=== PATIENT | male | born 1940 | race Caucasian/White ===

== ENCOUNTER → 2016-07-22 | Outpatient (REF) | payer MEDICARE ==
[~2016-07-22] MED LIST: /GLIP10TAB PO; /METO25TAB PO; /NITR4TASL SL; ALTA1.25 PO; ASPI81TA85 PO; CIPR500T89 PO; CLOP75TA2 PO; CORE3.12 PO; FERR325T69 PO; FLAG500T PO; FLOV110A IN; JANU100T PO; LASI20TA PO; METF1000 PO; OMEP40CA2 PO; PERC7.5T12 PO; TYLE325T5 PO; fluticasone; protonix PO
== END ==
LOC: M LAB REF 12:52
PROVIDERS: ATTEND Internal Medicine Medical Oncology
DX: C18.9 Malignant neoplasm of colon, unspecified (principal)

== ENCOUNTER → 2016-08-06 | Outpatient (CLI) | payer MEDICARE ==
[~2016-08-06] MED LIST changes: +GASTROGRAFIN SOLUTION 30ML (Q9963) As Ordered ONE
--- NOTE | 2016-08-07 10:28 | REP ---
CT CHEST WITH IV CONTRAST: TECHNIQUE: Axial contrast enhanced images from the thoracic inlet to the upper abdomen using 100 mL Isovue 370 intravenous contrast material with multiplanar reformations. COMPARISON: 07/29/2015. Large calcified granuloma is seen in the lingula. Tiny calcified granuloma is seen in the right lower lobe. No suspicious pulmonary nodules are seen. There is mild bibasilar interstitial fibrosis. Calcified lymph nodes are seen in the left hilar region. No suspicious adenopathy is seen in the mediastinum, tavo or axillary region. There is no pleural or pericardial effusion. The heart is slightly enlarged. There are degenerative changes of the spine. IMPRESSION: Evidence of prior granulomatous disease. No suspicious findings. Mild cardiomegaly. Signed by Ankur Vela MD 08/08/2016 05:11 P
--- NOTE | 2016-08-07 10:45 | REP ---
CT ABDOMEN AND PELVIS WITH AND WITHOUT CONTRAST: TECHNIQUE: Axial noncontrast images through the abdomen followed by contrast-enhanced images through the abdomen and pelvis using 100 mL Isovue 370 intravenous contrast material, with coronal and sagittal reformations. Comparison 11/28/2015. The liver demonstrates no mass. Patient has had a prior cholecystectomy. There is no biliary dilatation. Tiny calcified granulomas are seen in the spleen without other intrinsic abnormality. The adrenals and pancreas demonstrate no abnormality. Right kidney appears normal. There is a cyst in the mid left kidney anteriorly measuring 2 cm in diameter. There is no hydronephrosis or nephrolithiasis bilaterally. Distal abdominal aorta is mildly ectatic with moderate atherosclerotic calcifications. There is no aneurysm. There is no adenopathy. There is no free air or free fluid. There is no bowel wall thickening. There is sigmoid diverticulosis. Urinary bladder is not well distended and not well evaluated. IMPRESSION: No new mass or adenopathy. Stable chronic findings as above. Signed by Ankur Vela MD 08/08/2016 05:11 P
== END ==
LOC: M RAD 14:57
PROVIDERS: ATTEND Internal Medicine Medical Oncology
DX: C61 Malignant neoplasm of prostate (principal); I51.7 Cardiomegaly
CPT/HCPCS: 71260; 74178; Q9963

== ENCOUNTER → 2016-08-19 | Outpatient (REF) | payer MEDICARE ==
[~2016-08-19] MED LIST changes: -GASTROGRAFIN SOLUTION 30ML (Q9963) As Ordered ONE
== END ==
LOC: M LAB REF 12:59
PROVIDERS: ATTEND Internal Medicine Medical Oncology
DX: C18.9 Malignant neoplasm of colon, unspecified (principal)

== ENCOUNTER → 2016-09-02 | Outpatient (REF) | payer MEDICARE | LOC: M LAB REF 12:25 | PROVIDERS: ATTEND Internal Medicine Medical Oncology | DX: C18.9 Malignant neoplasm of colon, unspecified (principal) ==

== ENCOUNTER → 2016-11-10 | Outpatient (REF) | payer MEDICARE ==
[~2016-11-10] MED LIST changes: +CIPR-249 PO; -CIPR500T89 PO
== END ==
LOC: M LAB REF 16:46
PROVIDERS: ATTEND Internal Medicine Medical Oncology
DX: C18.9 Malignant neoplasm of colon, unspecified (principal)

== ENCOUNTER → 2016-12-22 | Outpatient (REF) | payer MEDICARE | LOC: M LAB REF 12:28 | PROVIDERS: ATTEND Internal Medicine Medical Oncology | DX: C18.9 Malignant neoplasm of colon, unspecified (principal) ==

== ENCOUNTER → 2017-01-08 | Outpatient (REF) | payer MEDICARE | LOC: M LAB REF 10:30 | PROVIDERS: ATTEND Physician Assistant | DX: N39.0 Urinary tract infection, site not specified (principal) ==

== ENCOUNTER → 2017-01-13 | Outpatient (CLI) | payer MEDICARE ==
--- NOTE | 2017-01-13 16:33 | REP ---
PET/CT: History: Restaging colon carcinoma. Elevated CEA level. Comparisons: Comparison CT study of the chest is from 08/06/2016. Comparison CT abdomen and pelvis is from 08/06/2016. Comparison is made with prior PET-CT study from 12/22/2013. TECHNIQUE: 54 minutes following the intravenous injection of a 8.6 mCi dose of F-18 FDG, three-dimensional PET scintigraphy is acquired from the skull base to the proximal thighs. Triplanar noncontrast CT scanning is acquired through the same anatomic range for attenuation correction, and image registration with scan parameters optimized to minimize radiation exposure to the patient. PET scintigraphy and CT datasets were fused and displayed on a workstation with multiplanar and projection display capability. PET/CT Findings: There is no abnormal hypermetabolic uptake within the liver. No abnormal upper abdominal or retroperitoneal adenopathy or hypermetabolic dayana uptake is seen. Normal gastrointestinal, genitourinary, hepatic and splenic uptake is seen in the abdomen. No abnormal adrenal uptake is seen. In the thorax, there is no abnormal hypermetabolic uptake. There is a right-sided Pqxenq-N-Lsgn and a left-sided right heart pacemaker. Head and neck soft tissues are unremarkable. Impression: No abnormal hypermetabolic uptake seen. Negative PET scintigraphy. Signed by Mika Crooks MD 01/13/2017 05:31 P
== END ==
LOC: M PLARAD 10:37
PROVIDERS: ATTEND Internal Medicine Medical Oncology
DX: C18.9 Malignant neoplasm of colon, unspecified (principal)
CPT/HCPCS: 78815; A9552

== ENCOUNTER → 2017-07-21 | Outpatient (REF) | payer MEDICARE ==
[2017-07-21 14:02] LABS: CARCINOEMBRYONIC ANTIGEN 4.4 NG/ML (<2.5)
== END ==
LOC: M LAB REF 13:10
DX: C18.9 Malignant neoplasm of colon, unspecified (principal)
CPT/HCPCS: 82378

== ENCOUNTER 2017-08-18 18:04 | Inpatient (IN) | payer MEDICARE ==
[2017-08-18] MEDS: NS 500 ML IV (19:15)
[2017-08-18 19:41] LABS: BASO % 0.3 % (0.0-1.0); EOS # 0.1 10^3/uL (0.0-0.50); EOS % 0.7 % (0.0-3.0); HEMATOCRIT 41.1 % (42.0-52.0); HEMOGLOBIN 14.1 g/dl (13.5-17.5); IMMATURE GRANULOCYTE % 0.5 % (0-3.0); LYMPH # 1.2 10^3/uL (1.5-4.5); MEAN CORPUSCULAR HEMOGLOBIN 30.5 pg (27.0-33.0); MEAN CORPUSCULAR HGB CONC 34.3 g/dl (32.0-36.5); MONO % 8.4 % (0.0-5.0); NEUTROPHILS # 9.3 10^3/uL (1.8-7.7); NEUTROPHILS % 80.1 % (36.0-66.0); PLATELET COUNT, AUTOMATED 226 10^3/uL (150-450); RED BLOOD COUNT 4.62 10^6/uL (4.30-6.10); RED CELL DISTRIBUTION WIDTH 13.1 % (11.5-14.5); WHITE BLOOD COUNT 11.6 10^3/uL (4.0-10.0)
[2017-08-18] MEDS: MORPHINE 4 MG/ML 1ML VIAL/SYRINGE (J2270) IV (19:41)
[2017-08-18 20:06] LABS: INR 0.97; PARTIAL THROMBOPLASTIN TIME 24.4 SECONDS (26.8-37.9)
[2017-08-18] MEDS: HYDROmorphone HCL 1 MG/ML SYRINGE (J1170) IV (20:56)
[2017-08-18 22:45] LABS: ANION GAP 6 MEQ/L (8-16); BLOOD UREA NITROGEN 29 MG/DL (7-18); CARBON DIOXIDE LEVEL 26 MEQ/L (21-32); CHLORIDE LEVEL 109 MEQ/L (98-107); CK-MB VALUE MASS 3.9 NG/ML (<3.6); CPK CREATINE PHOSPHOKINASE 492 U/L (39-308); CREATININE FOR GFR 1.11 MG/DL (0.70-1.30); GLOMERULAR FILTRATION RATE > 60.0 (>42); GLUCOSE, FASTING 203 MG/DL (70-100); MB/CK RELATIVE INDEX 0.79 (< OR =4); POTASSIUM SERUM 4.2 MEQ/L (3.5-5.1); SODIUM LEVEL 141 MEQ/L (136-145)
[2017-08-18] MEDS ORDERED: ISOVUE-370 76% 100ML VIAL (Q9967) As Ordered (23:00)
[2017-08-18 23:41] LABS: TROPONIN I 0.23 NG/ML (< 0.10)
[2017-08-19] MEDS: HYDROmorphone HCL 1 MG/ML SYRINGE (J1170) IV (00:15)
[2017-08-19 01:55] LABS: ALBUMIN 3.4 GM/DL (3.2-5.2); ALBUMIN/GLOBULIN RATIO 1.21 (1.00-1.93); ALKALINE PHOSPHATASE 48 U/L (45-117); ALT/SGPT 26 U/L (12-78); AST/SGOT 31 U/L (7-37); BILIRUBIN,DIRECT 0.2 MG/DL (0.0-0.2); BILIRUBIN,TOTAL 0.7 MG/DL (0.2-1.0); MAGNESIUM LEVEL 1.5 MG/DL (1.8-2.4); NT-PRO BNP 925 PG/ML (<450); TOTAL PROTEIN 6.2 GM/DL (6.4-8.2)
[2017-08-19] MEDS ORDERED: DEXTROSE 50% 50 ML SYRINGE IV (02:15)
[2017-08-19] MEDS ORDERED: IPRATROPIUM 0.5MG/ALBUTEROL 2.5MG INH SOL UD 3ML (DUONEB)(J7620) NEB (02:15)
[2017-08-19] MEDS ORDERED: GLUCAGON FOR INJ 1 MG VIAL (J1610) SC (02:15)
[2017-08-19] MEDS ORDERED: GLUCOSE 4 GM CHEW TABLET PO (02:15)
[2017-08-19] MEDS: NS 1,000 ML IV (03:37)
[2017-08-19] MEDS: MORPHINE 4 MG/ML 1ML VIAL/SYRINGE (J2270) IV ×3 (03:37→10:58)
[2017-08-19] MEDS: MAG SULF 1GM/100ML (MAG RUN) 1 GM in APPROPRIATE DILUENT 1 EA IV (03:38)
[2017-08-19 04:47] LABS: BASO % 0.2 % (0.0-1.0); EOS % 0.1 % (0.0-3.0); HEMATOCRIT 37.1 % (42.0-52.0); HEMOGLOBIN 12.3 g/dl (13.5-17.5); IMMATURE GRANULOCYTE % 0.3 % (0-3.0); LYMPH # 1.2 10^3/uL (1.5-4.5); LYMPH % 12.4 % (24.0-44.0); MEAN CORPUSCULAR HEMOGLOBIN 29.9 pg (27.0-33.0); MEAN CORPUSCULAR HGB CONC 33.2 g/dl (32.0-36.5); MEAN CORPUSCULAR VOLUME 90.3 fl (80.0-96.0); MONO # 1.3 10^3/uL (0.0-0.8); NEUTROPHILS # 6.9 10^3/uL (1.8-7.7); PLATELET COUNT, AUTOMATED 164 10^3/uL (150-450); RED BLOOD COUNT 4.11 10^6/uL (4.30-6.10); RED CELL DISTRIBUTION WIDTH 12.9 % (11.5-14.5); WHITE BLOOD COUNT 9.4 10^3/uL (4.0-10.0)
[2017-08-19 05:13] LABS: ANION GAP 5 MEQ/L (8-16); BLOOD UREA NITROGEN 26 MG/DL (7-18); CALCIUM LEVEL 7.9 MG/DL (8.8-10.2); CARBON DIOXIDE LEVEL 26 MEQ/L (21-32); CHLORIDE LEVEL 108 MEQ/L (98-107); CK-MB VALUE MASS 4.9 NG/ML (<3.6); CPK CREATINE PHOSPHOKINASE 728 U/L (39-308); CREATININE FOR GFR 1.05 MG/DL (0.70-1.30); GLOMERULAR FILTRATION RATE > 60.0 (>42); GLUCOSE, FASTING 233 MG/DL (70-100); MB/CK RELATIVE INDEX 0.67 (< OR =4); POTASSIUM SERUM 4.3 MEQ/L (3.5-5.1); SODIUM LEVEL 139 MEQ/L (136-145); TROPONIN I 0.24 NG/ML (< 0.10)
[2017-08-19] MEDS: HumaLOG INSULIN (NovoLOG) PER UNIT SC ×4 (05:37→20:41)
[2017-08-19] MEDS: PERCOCET 5MG/325MG TAB PO ×3 (05:38→20:41)
[2017-08-19] MEDS: SYMBICORT 160/4.5MCG INHALER 6GM INH ×2 (07:38→20:00)
[2017-08-19] MEDS: FERROUS SULFATE 325MG TAB PO (08:51)
[2017-08-19] MEDS: CLOPIDOGREL 75 MG TAB PO (08:51)
[2017-08-19] MEDS: OMEPRAZOLE 20 MG CAP PO (08:51)
[2017-08-19] MEDS: SENOKOT S TAB PO ×2 (08:51→20:40)
[2017-08-19] MEDS: CARVedilol 6.25 MG TAB PO ×2 (08:53→20:40)
[2017-08-19] MEDS: FLUTICASONE PROP 0.05% NASAL SPRAY 16 GM (FLONASE) (08:53)
[2017-08-19 10:28] LABS: TROPONIN I 0.21 NG/ML (< 0.10)
[2017-08-19 10:39] LABS: CK-MB VALUE MASS 7.1 NG/ML (<3.6); CPK CREATINE PHOSPHOKINASE 1093 U/L (39-308); MB/CK RELATIVE INDEX 0.64 (< OR =4)
[2017-08-19 12:22] LABS: BEDSIDE GLUCOSE 214 MG/DL (83-110)
[2017-08-19 17:07] LABS: BEDSIDE GLUCOSE 224 MG/DL (83-110)
[2017-08-19 20:35] LABS: BEDSIDE GLUCOSE 232 MG/DL (83-110)
[2017-08-19] MEDS: ASPIRIN 81 MG ENTERIC TAB PO (20:40)
[2017-08-19] MEDS: FENOFIBRATE 145 MG TAB (TRICOR) PO (20:40)
[2017-08-19] MEDS: SIMVASTATIN 20 MG TAB PO (20:41)
[2017-08-20] MEDS: MORPHINE 4 MG/ML 1ML VIAL/SYRINGE (J2270) IV ×2 (04:53→10:11)
[2017-08-20] MEDS: PERCOCET 5MG/325MG TAB PO ×3 (07:05→19:09)
[2017-08-20] MEDS: FLUTICASONE PROP 0.05% NASAL SPRAY 16 GM (FLONASE) (09:00)
[2017-08-20 09:11] LABS: BEDSIDE GLUCOSE 287 MG/DL (83-110)
[2017-08-20] MEDS: HumaLOG INSULIN (NovoLOG) PER UNIT SC ×4 (10:10→21:00)
[2017-08-20] MEDS: OMEPRAZOLE 20 MG CAP PO (10:11)
[2017-08-20] MEDS: SENOKOT S TAB PO ×2 (10:11→21:04)
[2017-08-20] MEDS: CLOPIDOGREL 75 MG TAB PO (10:12)
[2017-08-20] MEDS: FERROUS SULFATE 325MG TAB PO (10:12)
[2017-08-20] MEDS: CARVedilol 6.25 MG TAB PO ×2 (10:15→21:00)
[2017-08-20] MEDS: SYMBICORT 160/4.5MCG INHALER 6GM INH ×2 (11:20→21:31)
[2017-08-20 11:26] LABS: BASO % 0.5 % (0.0-1.0); EOS % 0.3 % (0.0-3.0); HEMOGLOBIN 12.2 g/dl (13.5-17.5); IMMATURE GRANULOCYTE % 0.8 % (0-3.0); LYMPH # 1.4 10^3/uL (1.5-4.5); LYMPH % 15.7 % (24.0-44.0); MEAN CORPUSCULAR HEMOGLOBIN 30.5 pg (27.0-33.0); MEAN CORPUSCULAR HGB CONC 33.9 g/dl (32.0-36.5); MONO # 1.2 10^3/uL (0.0-0.8); MONO % 13.6 % (0.0-5.0); NEUTROPHILS % 69.1 % (36.0-66.0); PLATELET COUNT, AUTOMATED 179 10^3/uL (150-450); RED CELL DISTRIBUTION WIDTH 13.1 % (11.5-14.5); WHITE BLOOD COUNT 8.7 10^3/uL (4.0-10.0)
[2017-08-20 11:43] LABS: ANION GAP 7 MEQ/L (8-16); BLOOD UREA NITROGEN 23 MG/DL (7-18); CALCIUM LEVEL 8.7 MG/DL (8.8-10.2); CARBON DIOXIDE LEVEL 27 MEQ/L (21-32); CHLORIDE LEVEL 100 MEQ/L (98-107); CREATININE FOR GFR 1.16 MG/DL (0.70-1.30); GLOMERULAR FILTRATION RATE > 60.0 (>42); GLUCOSE, FASTING 296 MG/DL (70-100); POTASSIUM SERUM 4.3 MEQ/L (3.5-5.1); SODIUM LEVEL 134 MEQ/L (136-145)
[2017-08-20 11:49] LABS: BEDSIDE GLUCOSE 274 MG/DL (83-110)
[2017-08-20 12:34] LABS: BEDSIDE GLUCOSE 258 MG/DL (83-110)
[2017-08-20] MEDS: ACETAMINOPHEN TAB 650MG DOSE (2X325MG) PO (12:51)
[2017-08-20 16:02] LABS: APPEARANCE, URINE CLEAR (CLEAR); BACTERIA, URINE AUTO NEGATIVE (NEGATIVE); BILIRUBIN, URINE AUTO NEGATIVE (NEGATIVE); BLOOD, URINE BLOOD NEGATIVE (NEGATIVE); COLOR, URINE YELLOW (YELLOW); GLUCOSE, URINE (UA) AUTO 3+ mg/dL (NEGATIVE); KETONE, URINE AUTO NEGATIVE (NEGATIVE); LEUKOCYTE ESTERASE, URINE AUTO NEGATIVE (NEGATIVE); NITRITE, URINE AUTO NEGATIVE (NEGATIVE); PROTEIN, URINE AUTO NEGATIVE (NEGATIVE); RBC, URINE AUTO 4 /HPF (0-3); SPECIFIC GRAVITY URINE AUTO 1.028 (1.002-1.035); SQUAMOUS EPITHELIAL CELL UR AU 0 /HPF (0-6); WBC, URINE AUTO 0 /HPF (0-3)
[2017-08-20 16:23] LABS: ESTIMATED AVERAGE GLUCOSE 148 MG/DL (60-110); HEMOGLOBIN A1c 6.8 %
[2017-08-20 16:25] LABS: AMMONIA 33 uMOL/L (<32)
[2017-08-20 16:38] LABS: ERYTHROCYTE SEDIMENTATION RATE 40 mm/hr (0-20)
[2017-08-20] MEDS: NS 1,000 ML IV (17:54)
[2017-08-20] MEDS: ENOXAPARIN 30 MG/0.3 ML SYR (J1650) SC (18:08)
[2017-08-20] MEDS: LEVEMIR (INSULIN DETEMIR) 1 UNITS/0.01ML SC (21:02)
[2017-08-20] MEDS: FENOFIBRATE 145 MG TAB (TRICOR) PO (21:02)
[2017-08-20] MEDS: ASPIRIN 81 MG ENTERIC TAB PO (21:03)
[2017-08-20] MEDS: VANCOMYCIN HCL 1,000 MG, VIAL MATE ADAPTER 1 EACH in D5W 250 ML IV (22:00)
[2017-08-20] MEDS: PIPERACILLIN/TAZOBACTAM SOD 3.375 GM in D5W MINI-BAG PLUS 50 ML IV (23:00)
[2017-08-21] MEDS: PIPERACILLIN/TAZOBACTAM SOD 3.375 GM in D5W MINI-BAG PLUS 50 ML IV ×4 (04:48→23:09)
[2017-08-21 05:49] LABS: BASO % 0.2 % (0.0-1.0); HEMATOCRIT 31.8 % (42.0-52.0); HEMOGLOBIN 10.7 g/dl (13.5-17.5); IMMATURE GRANULOCYTE % 3.1 % (0-3.0); LYMPH # 1.3 10^3/uL (1.5-4.5); LYMPH % 8.2 % (24.0-44.0); MEAN CORPUSCULAR HGB CONC 33.6 g/dl (32.0-36.5); MEAN CORPUSCULAR VOLUME 89.1 fl (80.0-96.0); MONO # 1.5 10^3/uL (0.0-0.8); MONO % 9.4 % (0.0-5.0); NEUTROPHILS # 12.5 10^3/uL (1.8-7.7); NEUTROPHILS % 79.1 % (36.0-66.0); PLATELET COUNT, AUTOMATED 138 10^3/uL (150-450); RED BLOOD COUNT 3.57 10^6/uL (4.30-6.10); WHITE BLOOD COUNT 15.8 10^3/uL (4.0-10.0)
[2017-08-21 06:13] LABS: ANION GAP 7 MEQ/L (8-16); BLOOD UREA NITROGEN 21 MG/DL (7-18); CARBON DIOXIDE LEVEL 26 MEQ/L (21-32); CHLORIDE LEVEL 101 MEQ/L (98-107); CREATININE FOR GFR 1.01 MG/DL (0.70-1.30); GLOMERULAR FILTRATION RATE > 60.0 (>42); GLUCOSE, FASTING 218 MG/DL (70-100); MAGNESIUM LEVEL 1.9 MG/DL (1.8-2.4); POTASSIUM SERUM 4.2 MEQ/L (3.5-5.1); SODIUM LEVEL 134 MEQ/L (136-145)
[2017-08-21] MEDS: PERCOCET 5MG/325MG TAB PO ×6 (06:23→23:09)
[2017-08-21] MEDS: SYMBICORT 160/4.5MCG INHALER 6GM INH ×2 (07:25→20:53)
[2017-08-21 08:28] LABS: BEDSIDE GLUCOSE 200 MG/DL (83-110)
[2017-08-21] MEDS: SENOKOT S TAB PO ×2 (08:31→20:23)
[2017-08-21] MEDS: OMEPRAZOLE 20 MG CAP PO (08:31)
[2017-08-21] MEDS: FERROUS SULFATE 325MG TAB PO (08:31)
[2017-08-21] MEDS: LACTOBACILLUS ACIDOPHILUS CAP (BACID) PO ×2 (08:31→18:23)
[2017-08-21] MEDS: NS 1,000 ML IV (08:31)
[2017-08-21] MEDS: HumaLOG INSULIN (NovoLOG) PER UNIT SC ×4 (08:31→20:14)
[2017-08-21] MEDS: CLOPIDOGREL 75 MG TAB PO (08:31)
[2017-08-21] MEDS: CARVedilol 6.25 MG TAB PO ×2 (08:32→20:24)
[2017-08-21] MEDS: ENOXAPARIN 30 MG/0.3 ML SYR (J1650) SC (08:32)
[2017-08-21] MEDS: FLUTICASONE PROP 0.05% NASAL SPRAY 16 GM (FLONASE) (09:46)
[2017-08-21] MEDS: VANCOMYCIN HCL 1,000 MG, VIAL MATE ADAPTER 1 EACH in D5W 250 ML IV ×2 (11:28)
[2017-08-21] MEDS: ONDANSETRON 4MG/2ML VIAL (J2405) IV (13:33)
[2017-08-21] MEDS: MORPHINE 4 MG/ML 1ML VIAL/SYRINGE (J2270) IV (16:22)
[2017-08-21] MEDS: ASPIRIN 81 MG ENTERIC TAB PO (20:23)
[2017-08-21] MEDS: SIMVASTATIN 20 MG TAB PO (20:23)
[2017-08-21] MEDS: FENOFIBRATE 145 MG TAB (TRICOR) PO (20:23)
[2017-08-21] MEDS: LEVEMIR (INSULIN DETEMIR) 1 UNITS/0.01ML SC (20:24)
[2017-08-21 21:34] LABS: BEDSIDE GLUCOSE 238 MG/DL (83-110)
[2017-08-21 21:34] LABS: BEDSIDE GLUCOSE 203 MG/DL (83-110)
[2017-08-21 21:34] LABS: BEDSIDE GLUCOSE 235 MG/DL (83-110)
[2017-08-21 21:34] LABS: BEDSIDE GLUCOSE 236 MG/DL (83-110)
[2017-08-22 00:45] LABS: CK-MB VALUE MASS 1.5 NG/ML (<3.6); TROPONIN I 0.15 NG/ML (< 0.10)
[2017-08-22] MEDS: VANCOMYCIN HCL 1,000 MG, VIAL MATE ADAPTER 1 EACH in D5W 250 ML IV ×2 (00:49→13:41)
[2017-08-22] MEDS: FAMOTIDINE 20 MG TAB PO (00:50)
[2017-08-22] MEDS: SUCRALFATE SUSP 1GM/10ML UD PO (00:50)
[2017-08-22 01:13] LABS: MB/CK RELATIVE INDEX 0.97 (< OR =4)
[2017-08-22 01:22] LABS: CPK CREATINE PHOSPHOKINASE 154 U/L (39-308)
[2017-08-22] MEDS: PIPERACILLIN/TAZOBACTAM SOD 3.375 GM in D5W MINI-BAG PLUS 50 ML IV ×4 (04:20→23:19)
[2017-08-22] MEDS: PERCOCET 5MG/325MG TAB PO ×2 (06:07→17:50)
[2017-08-22] MEDS: ONDANSETRON 4MG/2ML VIAL (J2405) IV (06:07)
[2017-08-22 06:29] LABS: BASO % 0.2 % (0.0-1.0); EOS # 0.1 10^3/uL (0.0-0.50); EOS % 0.6 % (0.0-3.0); HEMATOCRIT 31.7 % (42.0-52.0); HEMOGLOBIN 10.5 g/dl (13.5-17.5); IMMATURE GRANULOCYTE % 1.9 % (0-3.0); LYMPH # 1.3 10^3/uL (1.5-4.5); LYMPH % 9.2 % (24.0-44.0); MEAN CORPUSCULAR HEMOGLOBIN 29.8 pg (27.0-33.0); MEAN CORPUSCULAR HGB CONC 33.1 g/dl (32.0-36.5); MEAN CORPUSCULAR VOLUME 90.1 fl (80.0-96.0); MONO # 1.2 10^3/uL (0.0-0.8); NEUTROPHILS # 11.6 10^3/uL (1.8-7.7); NEUTROPHILS % 80.1 % (36.0-66.0); PLATELET COUNT, AUTOMATED 169 10^3/uL (150-450); RED BLOOD COUNT 3.52 10^6/uL (4.30-6.10); RED CELL DISTRIBUTION WIDTH 13.1 % (11.5-14.5); WHITE BLOOD COUNT 14.5 10^3/uL (4.0-10.0)
[2017-08-22 06:50] LABS: ANION GAP 7 MEQ/L (8-16); BLOOD UREA NITROGEN 22 MG/DL (7-18); CALCIUM LEVEL 8.3 MG/DL (8.8-10.2); CARBON DIOXIDE LEVEL 28 MEQ/L (21-32); CHLORIDE LEVEL 99 MEQ/L (98-107); CPK CREATINE PHOSPHOKINASE 140 U/L (39-308); GLUCOSE, FASTING 246 MG/DL (70-100); MAGNESIUM LEVEL 2.1 MG/DL (1.8-2.4); SODIUM LEVEL 134 MEQ/L (136-145); TROPONIN I 0.15 NG/ML (< 0.10)
[2017-08-22 06:51] LABS: CK-MB VALUE MASS 1.9 NG/ML (<3.6); GLOMERULAR FILTRATION RATE > 60.0 (>42); MB/CK RELATIVE INDEX 1.35 (< OR =4)
[2017-08-22] MEDS: SYMBICORT 160/4.5MCG INHALER 6GM INH ×2 (07:36→20:35)
[2017-08-22] MEDS: FERROUS SULFATE 325MG TAB PO (08:31)
[2017-08-22] MEDS: LACTOBACILLUS ACIDOPHILUS CAP (BACID) PO ×2 (08:31→17:20)
[2017-08-22] MEDS: ENOXAPARIN 30 MG/0.3 ML SYR (J1650) SC (08:31)
[2017-08-22] MEDS: SENOKOT S TAB PO ×2 (08:32→20:03)
[2017-08-22] MEDS: OMEPRAZOLE 20 MG CAP PO (08:32)
[2017-08-22] MEDS: CARVedilol 6.25 MG TAB PO ×2 (08:33→20:03)
[2017-08-22] MEDS: CLOPIDOGREL 75 MG TAB PO (08:33)
[2017-08-22] MEDS: HumaLOG INSULIN (NovoLOG) PER UNIT SC ×4 (08:38→20:04)
[2017-08-22 11:36] LABS: VANCOMYCIN LEVEL TROUGH 8.5 UG/ML (10.0-20.0)
[2017-08-22 11:46] LABS: BEDSIDE GLUCOSE 271 MG/DL (83-110)
[2017-08-22] MEDS: FLUTICASONE PROP 0.05% NASAL SPRAY 16 GM (FLONASE) (11:55)
[2017-08-22 17:10] LABS: BEDSIDE GLUCOSE 300 MG/DL (83-110)
[2017-08-22] MEDS: ASPIRIN 81 MG ENTERIC TAB PO (20:03)
[2017-08-22] MEDS: FENOFIBRATE 145 MG TAB (TRICOR) PO (20:03)
[2017-08-22] MEDS: LEVEMIR (INSULIN DETEMIR) 1 UNITS/0.01ML SC (20:04)
[2017-08-22 20:06] LABS: BEDSIDE GLUCOSE 323 MG/DL (83-110)
[2017-08-23] MEDS: VANCOMYCIN HCL 1,000 MG, VIAL MATE ADAPTER 1 EACH in D5W 250 ML IV ×2 (00:41→17:39)
[2017-08-23] MEDS: PIPERACILLIN/TAZOBACTAM SOD 3.375 GM in D5W MINI-BAG PLUS 50 ML IV ×4 (04:55→22:43)
[2017-08-23 05:00] LABS: BASO % 0.2 % (0.0-1.0); EOS # 0.2 10^3/uL (0.0-0.50); EOS % 1.5 % (0.0-3.0); HEMATOCRIT 28.1 % (42.0-52.0); HEMOGLOBIN 9.5 g/dl (13.5-17.5); IMMATURE GRANULOCYTE % 1.7 % (0-3.0); LYMPH # 1.1 10^3/uL (1.5-4.5); LYMPH % 10.1 % (24.0-44.0); MEAN CORPUSCULAR HEMOGLOBIN 30.4 pg (27.0-33.0); MEAN CORPUSCULAR HGB CONC 33.8 g/dl (32.0-36.5); MEAN CORPUSCULAR VOLUME 89.8 fl (80.0-96.0); MONO # 0.9 10^3/uL (0.0-0.8); MONO % 8.4 % (0.0-5.0); NEUTROPHILS # 8.4 10^3/uL (1.8-7.7); NEUTROPHILS % 78.1 % (36.0-66.0); PLATELET COUNT, AUTOMATED 158 10^3/uL (150-450); RED BLOOD COUNT 3.13 10^6/uL (4.30-6.10); WHITE BLOOD COUNT 10.7 10^3/uL (4.0-10.0)
[2017-08-23] MEDS: PERCOCET 5MG/325MG TAB PO ×2 (05:09→16:23)
[2017-08-23] MEDS: ONDANSETRON 4MG/2ML VIAL (J2405) IV (05:09)
[2017-08-23 05:17] LABS: ANION GAP 5 MEQ/L (8-16); BLOOD UREA NITROGEN 20 MG/DL (7-18); CALCIUM LEVEL 7.8 MG/DL (8.8-10.2); CARBON DIOXIDE LEVEL 32 MEQ/L (21-32); CHLORIDE LEVEL 98 MEQ/L (98-107); CREATININE FOR GFR 0.93 MG/DL (0.70-1.30); GLOMERULAR FILTRATION RATE > 60.0 (>42); GLUCOSE, FASTING 244 MG/DL (70-100); MAGNESIUM LEVEL 2.2 MG/DL (1.8-2.4); POTASSIUM SERUM 3.9 MEQ/L (3.5-5.1); SODIUM LEVEL 135 MEQ/L (136-145)
[2017-08-23] MEDS: FLUTICASONE PROP 0.05% NASAL SPRAY 16 GM (FLONASE) (08:40)
[2017-08-23] MEDS: ENOXAPARIN 30 MG/0.3 ML SYR (J1650) SC (08:41)
[2017-08-23] MEDS: HumaLOG INSULIN (NovoLOG) PER UNIT SC ×4 (08:41→21:46)
[2017-08-23] MEDS: LACTOBACILLUS ACIDOPHILUS CAP (BACID) PO ×2 (08:42→17:39)
[2017-08-23] MEDS: CARVedilol 6.25 MG TAB PO ×2 (08:43→21:45)
[2017-08-23] MEDS: SENOKOT S TAB PO ×2 (08:43→21:45)
[2017-08-23] MEDS: FERROUS SULFATE 325MG TAB PO (08:43)
[2017-08-23] MEDS: OMEPRAZOLE 20 MG CAP PO (08:43)
[2017-08-23] MEDS: CLOPIDOGREL 75 MG TAB PO (08:43)
[2017-08-23] MEDS: SYMBICORT 160/4.5MCG INHALER 6GM INH ×2 (09:30→20:03)
[2017-08-23 11:31] LABS: BEDSIDE GLUCOSE 236 MG/DL (83-110)
[2017-08-23 11:49] LABS: VANCOMYCIN LEVEL TROUGH 8.6 UG/ML (10.0-20.0)
[2017-08-23 17:33] LABS: BEDSIDE GLUCOSE 302 MG/DL (83-110)
[2017-08-23 21:40] LABS: BEDSIDE GLUCOSE 254 MG/DL (83-110)
[2017-08-23] MEDS: FENOFIBRATE 145 MG TAB (TRICOR) PO (21:45)
[2017-08-23] MEDS: SIMVASTATIN 20 MG TAB PO (21:45)
[2017-08-23] MEDS: ASPIRIN 81 MG ENTERIC TAB PO (21:45)
[2017-08-23] MEDS: LEVEMIR (INSULIN DETEMIR) 1 UNITS/0.01ML SC (21:46)
[2017-08-24] MEDS: VANCOMYCIN HCL 1,000 MG, VIAL MATE ADAPTER 1 EACH in D5W 250 ML IV ×2 (01:25→10:42)
[2017-08-24] MEDS: PERCOCET 5MG/325MG TAB PO ×4 (02:37→17:16)
[2017-08-24] MEDS: PIPERACILLIN/TAZOBACTAM SOD 3.375 GM in D5W MINI-BAG PLUS 50 ML IV ×4 (04:46→22:43)
[2017-08-24 06:10] LABS: BEDSIDE GLUCOSE 272 MG/DL (83-110)
[2017-08-24] MEDS: SYMBICORT 160/4.5MCG INHALER 6GM INH ×2 (07:25→21:54)
[2017-08-24] MEDS: ENOXAPARIN 30 MG/0.3 ML SYR (J1650) SC (08:48)
[2017-08-24] MEDS: FERROUS SULFATE 325MG TAB PO (08:49)
[2017-08-24] MEDS: SENOKOT S TAB PO ×2 (08:49→21:05)
[2017-08-24] MEDS: OMEPRAZOLE 20 MG CAP PO (08:50)
[2017-08-24] MEDS: SODIUM CHLORIDE 0.9% INJ 10 ML SYR IV (08:50)
[2017-08-24] MEDS: CLOPIDOGREL 75 MG TAB PO (08:50)
[2017-08-24] MEDS: LACTOBACILLUS ACIDOPHILUS CAP (BACID) PO ×2 (08:51→17:10)
[2017-08-24] MEDS: CARVedilol 6.25 MG TAB PO ×2 (08:51→20:52)
[2017-08-24] MEDS: FLUTICASONE PROP 0.05% NASAL SPRAY 16 GM (FLONASE) (08:51)
[2017-08-24] MEDS: HumaLOG INSULIN (NovoLOG) PER UNIT SC ×4 (08:52→21:06)
[2017-08-24 12:34] LABS: BEDSIDE GLUCOSE 262 MG/DL (83-110)
[2017-08-24 17:30] LABS: BEDSIDE GLUCOSE 231 MG/DL (83-110)
[2017-08-24 20:53] LABS: BEDSIDE GLUCOSE 262 MG/DL (83-110)
[2017-08-24] MEDS: FENOFIBRATE 145 MG TAB (TRICOR) PO (21:05)
[2017-08-24] MEDS: ASPIRIN 81 MG ENTERIC TAB PO (21:05)
[2017-08-24] MEDS: LEVEMIR (INSULIN DETEMIR) 1 UNITS/0.01ML SC (21:06)
[2017-08-24] MEDS: ACETAMINOPHEN TAB 650MG DOSE (2X325MG) PO (22:43)
[2017-08-25] MEDS: PIPERACILLIN/TAZOBACTAM SOD 3.375 GM in D5W MINI-BAG PLUS 50 ML IV ×4 (05:29→23:18)
[2017-08-25] MEDS: PERCOCET 5MG/325MG TAB PO ×3 (05:29→21:19)
[2017-08-25 05:53] LABS: HEMATOCRIT 31.9 % (42.0-52.0); HEMOGLOBIN 10.5 g/dl (13.5-17.5); MEAN CORPUSCULAR HEMOGLOBIN 29.3 pg (27.0-33.0); MEAN CORPUSCULAR HGB CONC 32.9 g/dl (32.0-36.5); MEAN CORPUSCULAR VOLUME 89.1 fl (80.0-96.0); PLATELET COUNT, AUTOMATED 244 10^3/uL (150-450); RED BLOOD COUNT 3.58 10^6/uL (4.30-6.10); RED CELL DISTRIBUTION WIDTH 13.1 % (11.5-14.5); WHITE BLOOD COUNT 10.3 10^3/uL (4.0-10.0)
[2017-08-25 05:54] LABS: POS COUNT POS FLAG; POSITIVE MORPH POS FLAG
[2017-08-25 05:55] LABS: ADD MANUAL DIFFER YES; DIFF SLIDE NUMBER 92
[2017-08-25 06:23] LABS: LYMPHOCYTES 27 % (16-52); MONOCYTES 8 % (0-8); NEUTROPHILS 65 % (35-75)
[2017-08-25 06:24] LABS: PLATELET ESTIMATE NORMAL (NORMAL); POLYCHROMASIA 1+
[2017-08-25] MEDS: SYMBICORT 160/4.5MCG INHALER 6GM INH ×2 (07:43→20:04)
[2017-08-25 07:56] LABS: BEDSIDE GLUCOSE 262 MG/DL (83-110)
[2017-08-25] MEDS: SENOKOT S TAB PO ×2 (08:18→21:00)
[2017-08-25] MEDS: CLOPIDOGREL 75 MG TAB PO (08:18)
[2017-08-25] MEDS: CARVedilol 6.25 MG TAB PO ×2 (08:18→21:19)
[2017-08-25] MEDS: OMEPRAZOLE 20 MG CAP PO (08:18)
[2017-08-25] MEDS: LACTOBACILLUS ACIDOPHILUS CAP (BACID) PO ×2 (08:18→17:01)
[2017-08-25] MEDS: FERROUS SULFATE 325MG TAB PO (08:18)
[2017-08-25] MEDS: SODIUM CHLORIDE 0.9% INJ 10 ML SYR IV (08:19)
[2017-08-25] MEDS: ENOXAPARIN 30 MG/0.3 ML SYR (J1650) SC (08:19)
[2017-08-25] MEDS: FLUTICASONE PROP 0.05% NASAL SPRAY 16 GM (FLONASE) (08:20)
[2017-08-25] MEDS: HumaLOG INSULIN (NovoLOG) PER UNIT SC ×4 (08:21→21:20)
[2017-08-25 11:45] LABS: BEDSIDE GLUCOSE 304 MG/DL (83-110)
[2017-08-25 16:50] LABS: BEDSIDE GLUCOSE 271 MG/DL (83-110)
[2017-08-25] MEDS: FENOFIBRATE 145 MG TAB (TRICOR) PO (21:19)
[2017-08-25] MEDS: SIMVASTATIN 20 MG TAB PO (21:19)
[2017-08-25] MEDS: ASPIRIN 81 MG ENTERIC TAB PO (21:19)
[2017-08-25] MEDS: LEVEMIR (INSULIN DETEMIR) 1 UNITS/0.01ML SC (21:20)
[2017-08-26] MEDS ORDERED: UNRESOLVED CLARIFICATION ENTRY XX (00:01)
[2017-08-26] MEDS: PERCOCET 5MG/325MG TAB PO ×4 (04:33→22:35)
[2017-08-26] MEDS: PIPERACILLIN/TAZOBACTAM SOD 3.375 GM in D5W MINI-BAG PLUS 50 ML IV ×3 (04:33→17:27)
[2017-08-26 04:49] LABS: HEMATOCRIT 29.4 % (42.0-52.0); HEMOGLOBIN 9.6 g/dl (13.5-17.5); MEAN CORPUSCULAR HEMOGLOBIN 29.8 pg (27.0-33.0); MEAN CORPUSCULAR HGB CONC 32.7 g/dl (32.0-36.5); MEAN CORPUSCULAR VOLUME 91.3 fl (80.0-96.0); PLATELET COUNT, AUTOMATED 217 10^3/uL (150-450); RED BLOOD COUNT 3.22 10^6/uL (4.30-6.10); RED CELL DISTRIBUTION WIDTH 13.2 % (11.5-14.5); WHITE BLOOD COUNT 7.8 10^3/uL (4.0-10.0)
[2017-08-26 04:52] LABS: ADD MANUAL DIFFER YES; DIFF SLIDE NUMBER 59; POS COUNT POS FLAG; POSITIVE MORPH POS FLAG
[2017-08-26 05:17] LABS: ANION GAP 6 MEQ/L (8-16); BLOOD UREA NITROGEN 20 MG/DL (7-18); CALCIUM LEVEL 7.8 MG/DL (8.8-10.2); CARBON DIOXIDE LEVEL 32 MEQ/L (21-32); CHLORIDE LEVEL 101 MEQ/L (98-107); CREATININE FOR GFR 0.97 MG/DL (0.70-1.30); GLOMERULAR FILTRATION RATE > 60.0 (>42); GLUCOSE, FASTING 225 MG/DL (70-100); POTASSIUM SERUM 3.6 MEQ/L (3.5-5.1); SODIUM LEVEL 139 MEQ/L (136-145)
[2017-08-26 05:26] LABS: BANDS 1 % (< 11); BASOPHILS 1 % (0-4); EOSINOPHILS 1 % (0-5); LYMPHOCYTES 21 % (16-52); METAMYELOCYTES 1 % (0-0); MONOCYTES 4 % (0-8); MYELOCYTES 1 % (0-0); NEUTROPHILS 70 % (35-75); PLATELET ESTIMATE NORMAL (NORMAL)
[2017-08-26] MEDS: SYMBICORT 160/4.5MCG INHALER 6GM INH ×2 (07:04→20:57)
[2017-08-26] MEDS: CLOPIDOGREL 75 MG TAB PO (08:19)
[2017-08-26] MEDS: LACTOBACILLUS ACIDOPHILUS CAP (BACID) PO ×2 (08:19→17:27)
[2017-08-26] MEDS: SENOKOT S TAB PO ×2 (08:20→22:35)
[2017-08-26] MEDS: OMEPRAZOLE 20 MG CAP PO (08:20)
[2017-08-26] MEDS: FERROUS SULFATE 325MG TAB PO (08:20)
[2017-08-26] MEDS: CARVedilol 6.25 MG TAB PO ×2 (08:20→22:35)
[2017-08-26] MEDS: SODIUM CHLORIDE 0.9% INJ 10 ML SYR IV (08:20)
[2017-08-26] MEDS: HumaLOG INSULIN (NovoLOG) PER UNIT SC ×4 (08:20→22:33)
[2017-08-26] MEDS: ENOXAPARIN 30 MG/0.3 ML SYR (J1650) SC (08:21)
[2017-08-26] MEDS: FLUTICASONE PROP 0.05% NASAL SPRAY 16 GM (FLONASE) (08:21)
[2017-08-26 08:27] LABS: BEDSIDE GLUCOSE 326 MG/DL (83-110)
[2017-08-26 12:16] LABS: BEDSIDE GLUCOSE 230 MG/DL (83-110)
[2017-08-26] MEDS: MORPHINE 4 MG/ML 1ML VIAL/SYRINGE (J2270) IV (14:34)
[2017-08-26 20:01] LABS: BEDSIDE GLUCOSE 325 MG/DL (83-110)
[2017-08-26] MEDS: LEVEMIR (INSULIN DETEMIR) 1 UNITS/0.01ML SC (22:34)
[2017-08-26] MEDS: FENOFIBRATE 145 MG TAB (TRICOR) PO (22:36)
[2017-08-26] MEDS: ASPIRIN 81 MG ENTERIC TAB PO (22:36)
[2017-08-27] MEDS: PIPERACILLIN/TAZOBACTAM SOD 3.375 GM in D5W MINI-BAG PLUS 50 ML IV ×3 (00:01→12:08)
[2017-08-27 05:38] LABS: HEMATOCRIT 31.8 % (42.0-52.0); HEMOGLOBIN 10.3 g/dl (13.5-17.5); MEAN CORPUSCULAR HEMOGLOBIN 29.4 pg (27.0-33.0); MEAN CORPUSCULAR HGB CONC 32.4 g/dl (32.0-36.5); MEAN CORPUSCULAR VOLUME 90.9 fl (80.0-96.0); PLATELET COUNT, AUTOMATED 260 10^3/uL (150-450); RED CELL DISTRIBUTION WIDTH 13.7 % (11.5-14.5); WHITE BLOOD COUNT 7.2 10^3/uL (4.0-10.0)
[2017-08-27 05:41] LABS: POS COUNT POS FLAG; POSITIVE MORPH POS FLAG
[2017-08-27 05:42] LABS: ADD MANUAL DIFFER YES; DIFF SLIDE NUMBER 48
[2017-08-27 06:33] LABS: BEDSIDE GLUCOSE 244 MG/DL (83-110)
[2017-08-27 06:35] LABS: ANION GAP 7 MEQ/L (8-16); BLOOD UREA NITROGEN 15 MG/DL (7-18); CALCIUM LEVEL 7.9 MG/DL (8.8-10.2); CARBON DIOXIDE LEVEL 30 MEQ/L (21-32); CHLORIDE LEVEL 101 MEQ/L (98-107); CREATININE FOR GFR 0.89 MG/DL (0.70-1.30); GLOMERULAR FILTRATION RATE > 60.0 (>42); GLUCOSE, FASTING 203 MG/DL (70-100); POTASSIUM SERUM 3.6 MEQ/L (3.5-5.1); SODIUM LEVEL 138 MEQ/L (136-145)
[2017-08-27 06:42] LABS: ATYPICAL LYMPH 1 % (0-5); BANDS 1 % (< 11); BASOPHILS 1 % (0-4); EOSINOPHILS 5 % (0-5); LYMPHOCYTES 18 % (16-52); METAMYELOCYTES 1 % (0-0); MONOCYTES 10 % (0-8); NEUTROPHILS 63 % (35-75)
[2017-08-27 06:45] LABS: PLATELET ESTIMATE NORMAL (NORMAL)
[2017-08-27 06:46] LABS: POLYCHROMASIA 1+
[2017-08-27] MEDS: SYMBICORT 160/4.5MCG INHALER 6GM INH ×2 (07:22→21:33)
[2017-08-27 08:23] LABS: C REACTIVE PROTEIN QUANTITATIV 5.85 MG/DL (0.00-0.30)
[2017-08-27] MEDS: HumaLOG INSULIN (NovoLOG) PER UNIT SC ×4 (08:49→21:00)
[2017-08-27] MEDS: LACTOBACILLUS ACIDOPHILUS CAP (BACID) PO ×2 (08:49→17:58)
[2017-08-27] MEDS: ENOXAPARIN 30 MG/0.3 ML SYR (J1650) SC (08:49)
[2017-08-27] MEDS: FERROUS SULFATE 325MG TAB PO (08:50)
[2017-08-27] MEDS: CLOPIDOGREL 75 MG TAB PO (08:50)
[2017-08-27] MEDS: OMEPRAZOLE 20 MG CAP PO (08:50)
[2017-08-27] MEDS: PERCOCET 5MG/325MG TAB PO ×3 (08:50→22:36)
[2017-08-27] MEDS: CARVedilol 6.25 MG TAB PO ×2 (08:51→21:04)
[2017-08-27] MEDS: SODIUM CHLORIDE 0.9% INJ 10 ML SYR IV (08:52)
[2017-08-27] MEDS: FLUTICASONE PROP 0.05% NASAL SPRAY 16 GM (FLONASE) (08:52)
[2017-08-27] MEDS: SENOKOT S TAB PO ×2 (08:52→21:04)
[2017-08-27 11:31] LABS: BEDSIDE GLUCOSE 265 MG/DL (83-110)
[2017-08-27] MEDS: LevoFLOXacin 750 MG TABLET PO (13:35)
[2017-08-27 17:04] LABS: BEDSIDE GLUCOSE 221 MG/DL (83-110)
[2017-08-27 20:30] LABS: BEDSIDE GLUCOSE 245 MG/DL (83-110)
[2017-08-27] MEDS: ASPIRIN 81 MG ENTERIC TAB PO (21:04)
[2017-08-27] MEDS: FENOFIBRATE 145 MG TAB (TRICOR) PO (21:04)
[2017-08-27] MEDS: SIMVASTATIN 20 MG TAB PO (21:04)
[2017-08-27] MEDS: LEVEMIR (INSULIN DETEMIR) 1 UNITS/0.01ML SC (21:05)
[2017-08-27] MEDS: ACETAMINOPHEN TAB 650MG DOSE (2X325MG) PO (21:08)
[2017-08-28] MEDS: LevoFLOXacin 750 MG TABLET PO (05:13)
[2017-08-28] MEDS: PERCOCET 5MG/325MG TAB PO ×3 (05:13→21:25)
[2017-08-28 05:36] LABS: BASO % 0.3 % (0.0-1.0); EOS # 0.2 10^3/uL (0.0-0.50); EOS % 2.9 % (0.0-3.0); HEMATOCRIT 30.9 % (42.0-52.0); HEMOGLOBIN 10.1 g/dl (13.5-17.5); IMMATURE GRANULOCYTE % 3.8 % (0-3.0); LYMPH # 1.3 10^3/uL (1.5-4.5); LYMPH % 19.4 % (24.0-44.0); MEAN CORPUSCULAR HEMOGLOBIN 30.1 pg (27.0-33.0); MEAN CORPUSCULAR HGB CONC 32.7 g/dl (32.0-36.5); MONO # 0.5 10^3/uL (0.0-0.8); MONO % 8.2 % (0.0-5.0); NEUTROPHILS # 4.3 10^3/uL (1.8-7.7); NEUTROPHILS % 65.4 % (36.0-66.0); PLATELET COUNT, AUTOMATED 260 10^3/uL (150-450); RED BLOOD COUNT 3.36 10^6/uL (4.30-6.10); RED CELL DISTRIBUTION WIDTH 13.8 % (11.5-14.5); WHITE BLOOD COUNT 6.5 10^3/uL (4.0-10.0)
[2017-08-28 06:13] LABS: ANION GAP 6 MEQ/L (8-16); BLOOD UREA NITROGEN 15 MG/DL (7-18); CALCIUM LEVEL 8.1 MG/DL (8.8-10.2); CARBON DIOXIDE LEVEL 30 MEQ/L (21-32); CHLORIDE LEVEL 103 MEQ/L (98-107); CREATININE FOR GFR 0.84 MG/DL (0.70-1.30); GLOMERULAR FILTRATION RATE > 60.0 (>42); GLUCOSE, FASTING 192 MG/DL (70-100); POTASSIUM SERUM 3.7 MEQ/L (3.5-5.1); SODIUM LEVEL 139 MEQ/L (136-145)
[2017-08-28] MEDS: SYMBICORT 160/4.5MCG INHALER 6GM INH ×2 (07:32→20:00)
[2017-08-28] MEDS: SODIUM CHLORIDE 0.9% INJ 10 ML SYR IV (08:26)
[2017-08-28] MEDS: FUROSEMIDE 20 MG/2 ML VIAL (J1940) IV (08:26)
[2017-08-28] MEDS: HumaLOG INSULIN (NovoLOG) PER UNIT SC ×4 (08:26→21:24)
[2017-08-28] MEDS: SENOKOT S TAB PO ×2 (08:27→21:24)
[2017-08-28] MEDS: CARVedilol 6.25 MG TAB PO ×2 (08:27→21:24)
[2017-08-28] MEDS: FERROUS SULFATE 325MG TAB PO (08:27)
[2017-08-28] MEDS: CLOPIDOGREL 75 MG TAB PO (08:27)
[2017-08-28] MEDS: LACTOBACILLUS ACIDOPHILUS CAP (BACID) PO ×2 (08:27→17:18)
[2017-08-28] MEDS: OMEPRAZOLE 20 MG CAP PO (08:27)
[2017-08-28] MEDS: FLUTICASONE PROP 0.05% NASAL SPRAY 16 GM (FLONASE) (08:27)
[2017-08-28] MEDS: ENOXAPARIN 30 MG/0.3 ML SYR (J1650) SC (08:27)
[2017-08-28 11:31] LABS: BEDSIDE GLUCOSE 225 MG/DL (83-110)
[2017-08-28] MEDS: MORPHINE 4 MG/ML 1ML VIAL/SYRINGE (J2270) IV (13:24)
[2017-08-28] MEDS: PIPERACILLIN/TAZOBACTAM SOD 3.375 GM in D5W MINI-BAG PLUS 50 ML IV ×2 (14:18→21:22)
[2017-08-28 16:54] LABS: BEDSIDE GLUCOSE 260 MG/DL (83-110)
[2017-08-28] MEDS ORDERED: MORPHINE 4 MG/ML 1ML VIAL/SYRINGE (J2270) IV ×2 (18:30→18:45)
[2017-08-28 19:41] LABS: BEDSIDE GLUCOSE 273 MG/DL (83-110)
[2017-08-28] MEDS: LEVEMIR (INSULIN DETEMIR) 1 UNITS/0.01ML SC (21:23)
[2017-08-28] MEDS: ASPIRIN 81 MG ENTERIC TAB PO (21:24)
[2017-08-28] MEDS: FENOFIBRATE 145 MG TAB (TRICOR) PO (21:24)
[2017-08-29] MEDS: PIPERACILLIN/TAZOBACTAM SOD 3.375 GM in D5W MINI-BAG PLUS 50 ML IV ×4 (02:23→20:10)
[2017-08-29 05:31] LABS: BASO % 0.3 % (0.0-1.0); EOS # 0.2 10^3/uL (0.0-0.50); EOS % 2.1 % (0.0-3.0); HEMATOCRIT 31.7 % (42.0-52.0); HEMOGLOBIN 10.3 g/dl (13.5-17.5); IMMATURE GRANULOCYTE % 1.6 % (0-3.0); LYMPH # 1.2 10^3/uL (1.5-4.5); LYMPH % 16.8 % (24.0-44.0); MEAN CORPUSCULAR HEMOGLOBIN 29.9 pg (27.0-33.0); MEAN CORPUSCULAR HGB CONC 32.5 g/dl (32.0-36.5); MEAN CORPUSCULAR VOLUME 92.2 fl (80.0-96.0); MONO # 0.5 10^3/uL (0.0-0.8); MONO % 7.3 % (0.0-5.0); NEUTROPHILS # 5.3 10^3/uL (1.8-7.7); NEUTROPHILS % 71.9 % (36.0-66.0); PLATELET COUNT, AUTOMATED 270 10^3/uL (150-450); RED BLOOD COUNT 3.44 10^6/uL (4.30-6.10); RED CELL DISTRIBUTION WIDTH 14.3 % (11.5-14.5); WHITE BLOOD COUNT 7.3 10^3/uL (4.0-10.0)
[2017-08-29 06:06] LABS: ANION GAP 6 MEQ/L (8-16); BLOOD UREA NITROGEN 19 MG/DL (7-18); CARBON DIOXIDE LEVEL 29 MEQ/L (21-32); CHLORIDE LEVEL 103 MEQ/L (98-107); CREATININE FOR GFR 0.92 MG/DL (0.70-1.30); GLOMERULAR FILTRATION RATE > 60.0 (>42); GLUCOSE, FASTING 218 MG/DL (70-100); POTASSIUM SERUM 3.9 MEQ/L (3.5-5.1); SODIUM LEVEL 138 MEQ/L (136-145)
[2017-08-29] MEDS: SYMBICORT 160/4.5MCG INHALER 6GM INH ×2 (08:11→21:07)
[2017-08-29] MEDS: CARVedilol 6.25 MG TAB PO ×2 (08:33→20:32)
[2017-08-29] MEDS: FERROUS SULFATE 325MG TAB PO (08:34)
[2017-08-29] MEDS: LACTOBACILLUS ACIDOPHILUS CAP (BACID) PO ×2 (08:34→17:06)
[2017-08-29] MEDS: SENOKOT S TAB PO ×2 (08:34→20:30)
[2017-08-29] MEDS: OMEPRAZOLE 20 MG CAP PO (08:34)
[2017-08-29] MEDS: ENOXAPARIN 30 MG/0.3 ML SYR (J1650) SC (08:35)
[2017-08-29] MEDS: HumaLOG INSULIN (NovoLOG) PER UNIT SC ×4 (08:36→20:29)
[2017-08-29] MEDS: FLUTICASONE PROP 0.05% NASAL SPRAY 16 GM (FLONASE) (08:36)
[2017-08-29] MEDS: SODIUM CHLORIDE 0.9% INJ 10 ML SYR IV (08:37)
[2017-08-29] MEDS: CLOPIDOGREL 75 MG TAB PO (09:00)
[2017-08-29] MEDS: PERCOCET 5MG/325MG TAB PO ×4 (09:48→21:41)
[2017-08-29 11:37] LABS: BEDSIDE GLUCOSE 262 MG/DL (83-110)
[2017-08-29 16:56] LABS: BEDSIDE GLUCOSE 291 MG/DL (83-110)
[2017-08-29 20:21] LABS: BEDSIDE GLUCOSE 294 MG/DL (83-110)
[2017-08-29] MEDS: LEVEMIR (INSULIN DETEMIR) 1 UNITS/0.01ML SC (20:29)
[2017-08-29] MEDS: ASPIRIN 81 MG ENTERIC TAB PO (20:29)
[2017-08-29] MEDS: FENOFIBRATE 145 MG TAB (TRICOR) PO (20:29)
[2017-08-29] MEDS: SIMVASTATIN 20 MG TAB PO (20:30)
[2017-08-30] MEDS: PIPERACILLIN/TAZOBACTAM SOD 3.375 GM in D5W MINI-BAG PLUS 50 ML IV ×4 (01:18→21:13)
[2017-08-30 05:27] LABS: BASO % 0.4 % (0.0-1.0); EOS # 0.2 10^3/uL (0.0-0.50); EOS % 2.3 % (0.0-3.0); HEMOGLOBIN 10.1 g/dl (13.5-17.5); IMMATURE GRANULOCYTE % 1.1 % (0-3.0); LYMPH # 1.4 10^3/uL (1.5-4.5); LYMPH % 17.2 % (24.0-44.0); MEAN CORPUSCULAR HEMOGLOBIN 29.9 pg (27.0-33.0); MEAN CORPUSCULAR HGB CONC 32.6 g/dl (32.0-36.5); MEAN CORPUSCULAR VOLUME 91.7 fl (80.0-96.0); MONO # 0.6 10^3/uL (0.0-0.8); MONO % 7.8 % (0.0-5.0); NEUTROPHILS # 5.7 10^3/uL (1.8-7.7); NEUTROPHILS % 71.2 % (36.0-66.0); PLATELET COUNT, AUTOMATED 311 10^3/uL (150-450); RED BLOOD COUNT 3.38 10^6/uL (4.30-6.10); RED CELL DISTRIBUTION WIDTH 14.2 % (11.5-14.5)
[2017-08-30] MEDS: PERCOCET 5MG/325MG TAB PO ×3 (05:36→21:14)
[2017-08-30 06:37] LABS: ANION GAP 8 MEQ/L (8-16); BLOOD UREA NITROGEN 17 MG/DL (7-18); CALCIUM LEVEL 7.7 MG/DL (8.8-10.2); CARBON DIOXIDE LEVEL 27 MEQ/L (21-32); CHLORIDE LEVEL 103 MEQ/L (98-107); CREATININE FOR GFR 0.89 MG/DL (0.70-1.30); GLOMERULAR FILTRATION RATE > 60.0 (>42); GLUCOSE, FASTING 198 MG/DL (70-100); POTASSIUM SERUM 3.9 MEQ/L (3.5-5.1); SODIUM LEVEL 138 MEQ/L (136-145)
[2017-08-30] MEDS: SYMBICORT 160/4.5MCG INHALER 6GM INH ×2 (07:48→20:13)
[2017-08-30] MEDS: HumaLOG INSULIN (NovoLOG) PER UNIT SC ×4 (08:28→21:22)
[2017-08-30] MEDS: FERROUS SULFATE 325MG TAB PO (08:29)
[2017-08-30] MEDS: LACTOBACILLUS ACIDOPHILUS CAP (BACID) PO ×2 (08:30→18:40)
[2017-08-30] MEDS: CLOPIDOGREL 75 MG TAB PO (08:30)
[2017-08-30] MEDS: OMEPRAZOLE 20 MG CAP PO (08:30)
[2017-08-30] MEDS: SENOKOT S TAB PO ×2 (08:30→21:14)
[2017-08-30] MEDS: CARVedilol 6.25 MG TAB PO ×2 (08:30→21:14)
[2017-08-30] MEDS: SODIUM CHLORIDE 0.9% INJ 10 ML SYR IV (08:31)
[2017-08-30] MEDS: ENOXAPARIN 30 MG/0.3 ML SYR (J1650) SC (08:31)
[2017-08-30] MEDS: LEVEMIR (INSULIN DETEMIR) 1 UNITS/0.01ML SC ×2 (08:37→21:16)
[2017-08-30] MEDS: FLUTICASONE PROP 0.05% NASAL SPRAY 16 GM (FLONASE) (08:37)
[2017-08-30 11:11] LABS: BEDSIDE GLUCOSE 238 MG/DL (83-110)
[2017-08-30 16:40] LABS: BEDSIDE GLUCOSE 226 MG/DL (83-110)
[2017-08-30] MEDS: ASPIRIN 81 MG ENTERIC TAB PO (21:14)
[2017-08-30] MEDS: FENOFIBRATE 145 MG TAB (TRICOR) PO (21:15)
[2017-08-30 21:17] LABS: BEDSIDE GLUCOSE 251 MG/DL (83-110)
[2017-08-31] MEDS: PIPERACILLIN/TAZOBACTAM SOD 3.375 GM in D5W MINI-BAG PLUS 50 ML IV ×4 (02:20→20:57)
[2017-08-31] MEDS: PERCOCET 5MG/325MG TAB PO ×4 (02:27→20:58)
[2017-08-31 05:30] LABS: BASO % 0.3 % (0.0-1.0); EOS # 0.2 10^3/uL (0.0-0.50); EOS % 2.1 % (0.0-3.0); HEMATOCRIT 32.2 % (42.0-52.0); HEMOGLOBIN 10.4 g/dl (13.5-17.5); IMMATURE GRANULOCYTE % 0.9 % (0-3.0); LYMPH # 1.4 10^3/uL (1.5-4.5); LYMPH % 19.3 % (24.0-44.0); MEAN CORPUSCULAR HEMOGLOBIN 29.6 pg (27.0-33.0); MEAN CORPUSCULAR HGB CONC 32.3 g/dl (32.0-36.5); MEAN CORPUSCULAR VOLUME 91.7 fl (80.0-96.0); MONO # 0.5 10^3/uL (0.0-0.8); MONO % 7.7 % (0.0-5.0); NEUTROPHILS # 4.9 10^3/uL (1.8-7.7); NEUTROPHILS % 69.7 % (36.0-66.0); PLATELET COUNT, AUTOMATED 317 10^3/uL (150-450); RED BLOOD COUNT 3.51 10^6/uL (4.30-6.10); RED CELL DISTRIBUTION WIDTH 14.2 % (11.5-14.5)
[2017-08-31] MEDS ORDERED: MORPHINE 10 MG/ML 1ML VIAL (J2270) IM (06:00)
[2017-08-31 06:40] LABS: ANION GAP 8 MEQ/L (8-16); BLOOD UREA NITROGEN 14 MG/DL (7-18); CALCIUM LEVEL 7.8 MG/DL (8.8-10.2); CARBON DIOXIDE LEVEL 28 MEQ/L (21-32); CHLORIDE LEVEL 103 MEQ/L (98-107); CREATININE FOR GFR 0.93 MG/DL (0.70-1.30); GLOMERULAR FILTRATION RATE > 60.0 (>42); GLUCOSE, FASTING 199 MG/DL (70-100); POTASSIUM SERUM 4.1 MEQ/L (3.5-5.1); SODIUM LEVEL 139 MEQ/L (136-145)
[2017-08-31] MEDS: SYMBICORT 160/4.5MCG INHALER 6GM INH ×2 (07:37→22:05)
[2017-08-31] MEDS: LACTOBACILLUS ACIDOPHILUS CAP (BACID) PO ×2 (07:57→17:56)
[2017-08-31] MEDS: CARVedilol 6.25 MG TAB PO ×2 (07:58→20:59)
[2017-08-31] MEDS: OMEPRAZOLE 20 MG CAP PO (07:58)
[2017-08-31] MEDS: CLOPIDOGREL 75 MG TAB PO (07:58)
[2017-08-31] MEDS: SENOKOT S TAB PO ×2 (07:59→20:58)
[2017-08-31] MEDS: ENOXAPARIN 30 MG/0.3 ML SYR (J1650) SC (08:01)
[2017-08-31] MEDS: HumaLOG INSULIN (NovoLOG) PER UNIT SC ×4 (08:02→20:58)
[2017-08-31] MEDS: LEVEMIR (INSULIN DETEMIR) 1 UNITS/0.01ML SC ×2 (08:03→20:58)
[2017-08-31] MEDS: SODIUM CHLORIDE 0.9% INJ 10 ML SYR IV ×2 (08:05→15:06)
[2017-08-31] MEDS: FERROUS SULFATE 325MG TAB PO (09:00)
[2017-08-31] MEDS: FLUTICASONE PROP 0.05% NASAL SPRAY 16 GM (FLONASE) (09:00)
[2017-08-31] MEDS: LISINOPRIL 5 MG TAB PO (09:17)
[2017-08-31] MEDS: glipiZIDE (GLUCOTROL) 5 MG TAB PO ×2 (09:17→17:56)
[2017-08-31] MEDS: FUROSEMIDE 20 MG TAB PO (09:18)
[2017-08-31 11:43] LABS: BEDSIDE GLUCOSE 211 MG/DL (83-110)
[2017-08-31] MEDS: ONDANSETRON 4MG/2ML VIAL (J2405) IV (15:04)
[2017-08-31 16:58] LABS: BEDSIDE GLUCOSE 113 MG/DL (83-110)
[2017-08-31 20:27] LABS: BEDSIDE GLUCOSE 161 MG/DL (83-110)
[2017-08-31] MEDS: FENOFIBRATE 145 MG TAB (TRICOR) PO (20:58)
[2017-08-31] MEDS: ASPIRIN 81 MG ENTERIC TAB PO (20:58)
[2017-08-31] MEDS: SIMVASTATIN 20 MG TAB PO (20:58)
[2017-09-01] MEDS: PIPERACILLIN/TAZOBACTAM SOD 3.375 GM in D5W MINI-BAG PLUS 50 ML IV ×3 (02:23→14:19)
[2017-09-01] MEDS: PERCOCET 5MG/325MG TAB PO ×4 (03:40→20:22)
[2017-09-01 06:18] LABS: BEDSIDE GLUCOSE 133 MG/DL (83-110)
[2017-09-01 07:31] LABS: BASO % 0.5 % (0.0-1.0); EOS # 0.2 10^3/uL (0.0-0.50); EOS % 2.4 % (0.0-3.0); HEMATOCRIT 34.1 % (42.0-52.0); IMMATURE GRANULOCYTE % 0.5 % (0-3.0); LYMPH # 1.6 10^3/uL (1.5-4.5); LYMPH % 20.7 % (24.0-44.0); MEAN CORPUSCULAR HEMOGLOBIN 30.1 pg (27.0-33.0); MEAN CORPUSCULAR HGB CONC 32.3 g/dl (32.0-36.5); MEAN CORPUSCULAR VOLUME 93.4 fl (80.0-96.0); MONO # 0.8 10^3/uL (0.0-0.8); MONO % 9.6 % (0.0-5.0); NEUTROPHILS # 5.2 10^3/uL (1.8-7.7); NEUTROPHILS % 66.3 % (36.0-66.0); PLATELET COUNT, AUTOMATED 355 10^3/uL (150-450); RED BLOOD COUNT 3.65 10^6/uL (4.30-6.10); RED CELL DISTRIBUTION WIDTH 14.3 % (11.5-14.5); WHITE BLOOD COUNT 7.8 10^3/uL (4.0-10.0)
[2017-09-01] MEDS: HumaLOG INSULIN (NovoLOG) PER UNIT SC ×4 (08:01→21:00)
[2017-09-01] MEDS: LEVEMIR (INSULIN DETEMIR) 1 UNITS/0.01ML SC ×2 (08:01→20:23)
[2017-09-01] MEDS: ENOXAPARIN 30 MG/0.3 ML SYR (J1650) SC (08:02)
[2017-09-01] MEDS: OMEPRAZOLE 20 MG CAP PO (08:03)
[2017-09-01] MEDS: CLOPIDOGREL 75 MG TAB PO (08:03)
[2017-09-01] MEDS: FUROSEMIDE 20 MG TAB PO (08:03)
[2017-09-01] MEDS: SENOKOT S TAB PO ×2 (08:03→20:21)
[2017-09-01] MEDS: FERROUS SULFATE 325MG TAB PO (08:03)
[2017-09-01] MEDS: LACTOBACILLUS ACIDOPHILUS CAP (BACID) PO ×2 (08:03→17:05)
[2017-09-01] MEDS: glipiZIDE (GLUCOTROL) 5 MG TAB PO ×2 (08:03→17:05)
[2017-09-01] MEDS: CARVedilol 6.25 MG TAB PO ×2 (08:04→20:20)
[2017-09-01] MEDS: FLUTICASONE PROP 0.05% NASAL SPRAY 16 GM (FLONASE) (08:04)
[2017-09-01] MEDS: LISINOPRIL 5 MG TAB PO (08:04)
[2017-09-01 08:10] LABS: ANION GAP 7 MEQ/L (8-16); BLOOD UREA NITROGEN 19 MG/DL (7-18); CARBON DIOXIDE LEVEL 28 MEQ/L (21-32); CHLORIDE LEVEL 104 MEQ/L (98-107); CREATININE FOR GFR 0.92 MG/DL (0.70-1.30); GLOMERULAR FILTRATION RATE > 60.0 (>42); GLUCOSE, FASTING 131 MG/DL (70-100); POTASSIUM SERUM 4.3 MEQ/L (3.5-5.1); SODIUM LEVEL 139 MEQ/L (136-145)
[2017-09-01] MEDS: MORPHINE 10 MG/ML 1ML VIAL (J2270) IV (09:49)
[2017-09-01] MEDS: SYMBICORT 160/4.5MCG INHALER 6GM INH ×2 (11:10→19:46)
[2017-09-01 12:21] LABS: BEDSIDE GLUCOSE 143 MG/DL (83-110)
[2017-09-01 16:42] LABS: BEDSIDE GLUCOSE 98 MG/DL (83-110)
[2017-09-01] MEDS: LevoFLOXacin 750 MG TABLET PO (18:25)
[2017-09-01] MEDS: FENOFIBRATE 145 MG TAB (TRICOR) PO (20:21)
[2017-09-01] MEDS: ASPIRIN 81 MG ENTERIC TAB PO (20:21)
[2017-09-01 20:28] LABS: BEDSIDE GLUCOSE 179 MG/DL (83-110)
[2017-09-02] MEDS: PERCOCET 5MG/325MG TAB PO ×3 (00:22→21:30)
[2017-09-02 06:02] LABS: BEDSIDE GLUCOSE 126 MG/DL (83-110)
[2017-09-02 07:00] LABS: C REACTIVE PROTEIN QUANTITATIV 1.95 MG/DL (0.00-0.30)
[2017-09-02] MEDS: SYMBICORT 160/4.5MCG INHALER 6GM INH ×2 (07:24→20:00)
[2017-09-02] MEDS: LACTOBACILLUS ACIDOPHILUS CAP (BACID) PO ×2 (08:42→18:00)
[2017-09-02] MEDS: glipiZIDE (GLUCOTROL) 5 MG TAB PO ×2 (08:43→17:30)
[2017-09-02] MEDS: CLOPIDOGREL 75 MG TAB PO (08:43)
[2017-09-02] MEDS: SENOKOT S TAB PO ×3 (08:43→21:23)
[2017-09-02] MEDS: OMEPRAZOLE 20 MG CAP PO (08:43)
[2017-09-02] MEDS: LevoFLOXacin 750 MG TABLET PO (08:43)
[2017-09-02] MEDS: FERROUS SULFATE 325MG TAB PO (08:43)
[2017-09-02] MEDS: FUROSEMIDE 20 MG TAB PO (08:44)
[2017-09-02] MEDS: CARVedilol 6.25 MG TAB PO ×2 (08:44→21:25)
[2017-09-02] MEDS: LISINOPRIL 5 MG TAB PO (08:44)
[2017-09-02] MEDS: SODIUM CHLORIDE 0.9% INJ 10 ML SYR IV (08:45)
[2017-09-02] MEDS: LEVEMIR (INSULIN DETEMIR) 1 UNITS/0.01ML SC ×2 (08:45→21:00)
[2017-09-02] MEDS: HumaLOG INSULIN (NovoLOG) PER UNIT SC ×4 (08:46→21:00)
[2017-09-02] MEDS: FLUTICASONE PROP 0.05% NASAL SPRAY 16 GM (FLONASE) (08:46)
[2017-09-02] MEDS: ENOXAPARIN 30 MG/0.3 ML SYR (J1650) SC (08:47)
[2017-09-02 11:52] LABS: BEDSIDE GLUCOSE 117 MG/DL (83-110)
[2017-09-02] MEDS: ASPIRIN 81 MG ENTERIC TAB PO (21:23)
[2017-09-02] MEDS: FENOFIBRATE 145 MG TAB (TRICOR) PO (21:24)
[2017-09-02] MEDS: SIMVASTATIN 20 MG TAB PO (21:25)
[2017-09-03] MEDS: HumaLOG INSULIN (NovoLOG) PER UNIT SC ×4 (07:30→20:21)
[2017-09-03] MEDS: LACTOBACILLUS ACIDOPHILUS CAP (BACID) PO ×2 (07:58→18:03)
[2017-09-03] MEDS: FERROUS SULFATE 325MG TAB PO (07:58)
[2017-09-03] MEDS: ENOXAPARIN 30 MG/0.3 ML SYR (J1650) SC (07:58)
[2017-09-03] MEDS: LEVEMIR (INSULIN DETEMIR) 1 UNITS/0.01ML SC ×2 (07:59→20:41)
[2017-09-03] MEDS: glipiZIDE (GLUCOTROL) 5 MG TAB PO ×2 (07:59→18:03)
[2017-09-03] MEDS: OMEPRAZOLE 20 MG CAP PO (07:59)
[2017-09-03] MEDS: LevoFLOXacin 750 MG TABLET PO (07:59)
[2017-09-03] MEDS: CLOPIDOGREL 75 MG TAB PO (07:59)
[2017-09-03] MEDS: FUROSEMIDE 20 MG TAB PO (08:00)
[2017-09-03] MEDS: PERCOCET 5MG/325MG TAB PO ×2 (08:00→18:08)
[2017-09-03] MEDS: CARVedilol 6.25 MG TAB PO ×2 (08:02→20:41)
[2017-09-03] MEDS: SENOKOT S TAB PO ×2 (08:03→20:20)
[2017-09-03] MEDS: LISINOPRIL 5 MG TAB PO (08:03)
[2017-09-03] MEDS: SODIUM CHLORIDE 0.9% INJ 10 ML SYR IV (08:04)
[2017-09-03] MEDS: FLUTICASONE PROP 0.05% NASAL SPRAY 16 GM (FLONASE) (08:04)
[2017-09-03] MEDS: SYMBICORT 160/4.5MCG INHALER 6GM INH ×2 (08:14→20:23)
[2017-09-03 10:11] LABS: BEDSIDE GLUCOSE 116 MG/DL (83-110)
[2017-09-03 10:12] LABS: BEDSIDE GLUCOSE 131 MG/DL (83-110)
[2017-09-03 11:39] LABS: BEDSIDE GLUCOSE 132 MG/DL (83-110)
[2017-09-03 14:26] LABS: BEDSIDE GLUCOSE 147 MG/DL (83-110)
[2017-09-03 16:52] LABS: BEDSIDE GLUCOSE 144 MG/DL (83-110)
[2017-09-03 20:19] LABS: BEDSIDE GLUCOSE 214 MG/DL (83-110)
[2017-09-03] MEDS: FENOFIBRATE 145 MG TAB (TRICOR) PO (20:40)
[2017-09-03] MEDS: ASPIRIN 81 MG ENTERIC TAB PO (20:40)
[2017-09-04 06:41] LABS: BEDSIDE GLUCOSE 125 MG/DL (83-110)
[2017-09-04] MEDS: SYMBICORT 160/4.5MCG INHALER 6GM INH (07:46)
[2017-09-04] MEDS: HumaLOG INSULIN (NovoLOG) PER UNIT SC (07:49)
[2017-09-04] MEDS: ENOXAPARIN 30 MG/0.3 ML SYR (J1650) SC (07:49)
[2017-09-04] MEDS: LEVEMIR (INSULIN DETEMIR) 1 UNITS/0.01ML SC (07:49)
[2017-09-04] MEDS: OMEPRAZOLE 20 MG CAP PO (07:49)
[2017-09-04] MEDS: CLOPIDOGREL 75 MG TAB PO (07:50)
[2017-09-04] MEDS: LevoFLOXacin 750 MG TABLET PO (07:50)
[2017-09-04] MEDS: glipiZIDE (GLUCOTROL) 5 MG TAB PO (07:50)
[2017-09-04] MEDS: FERROUS SULFATE 325MG TAB PO (07:50)
[2017-09-04] MEDS: LACTOBACILLUS ACIDOPHILUS CAP (BACID) PO (07:50)
[2017-09-04] MEDS: PERCOCET 5MG/325MG TAB PO (07:50)
[2017-09-04] MEDS: FUROSEMIDE 20 MG TAB PO (07:51)
[2017-09-04] MEDS: CARVedilol 6.25 MG TAB PO (07:52)
[2017-09-04] MEDS: LISINOPRIL 5 MG TAB PO (07:53)
[2017-09-04] MEDS: SENOKOT S TAB PO (07:53)
[2017-09-04] MEDS: SODIUM CHLORIDE 0.9% INJ 10 ML SYR IV (07:54)
[2017-09-04] MEDS: FLUTICASONE PROP 0.05% NASAL SPRAY 16 GM (FLONASE) (07:54)
== END 2017-09-04 11:25 | disposition home health service (06) | DRG 580 ==
LOC: M MS5PR 08-23 16:36 → M ED INP 08-19 01:39 → M PCU 08-19 03:03 → M ED 18:04 → M MSPAV 08-19 12:21 → M PCU 08-20 17:42
PROC: 0JDN0ZZ Extraction of Right Lower Leg Subcutaneous Tissue and Fascia, Open Approach (ICD-10-PCS; principal; 2017-08-25)
PROC: 0JCG0ZZ Extirpation of Matter from Right Lower Arm Subcutaneous Tissue and Fascia, Open Approach (ICD-10-PCS; 2017-08-25)
DX: S81.811A Laceration without foreign body, right lower leg, initial encounter (principal); I50.32 Chronic diastolic (congestive) heart failure; Z68.41 Body mass index [BMI] 40.0-44.9, adult; L03.115 Cellulitis of right lower limb; S42.141A Displaced fracture of glenoid cavity of scapula, right shoulder, initial encounter for closed fracture; S42.111A Displaced fracture of body of scapula, right shoulder, initial encounter for closed fracture; W28.XXXA Contact with powered lawn mower, initial encounter; Y92.007 Garden or yard of unspecified non-institutional (private) residence as the place of occurrence of the external cause; E66.01 Morbid (severe) obesity due to excess calories; E11.9 Type 2 diabetes mellitus without complications; S42.034A Nondisplaced fracture of lateral end of right clavicle, initial encounter for closed fracture; S90.31XA Contusion of right foot, initial encounter; I11.0 Hypertensive heart disease with heart failure; I25.10 Atherosclerotic heart disease of native coronary artery without angina pectoris; K21.9 Gastro-esophageal reflux disease without esophagitis; E83.42 Hypomagnesemia; B95.2 Enterococcus as the cause of diseases classified elsewhere; I25.2 Old myocardial infarction; B96.89 Other specified bacterial agents as the cause of diseases classified elsewhere; Z85.038 Personal history of other malignant neoplasm of large intestine; Z90.49 Acquired absence of other specified parts of digestive tract; Z92.21 Personal history of antineoplastic chemotherapy; Z95.5 Presence of coronary angioplasty implant and graft; Z98.0 Intestinal bypass and anastomosis status; Y93.H9 Activity, other involving exterior property and land maintenance, building and construction; Z79.02 Long term (current) use of antithrombotics/antiplatelets; Z79.82 Long term (current) use of aspirin; Z79.84 Long term (current) use of oral hypoglycemic drugs; Z95.810 Presence of automatic (implantable) cardiac defibrillator; Z87.891 Personal history of nicotine dependence

== ENCOUNTER → 2017-10-20 | Outpatient (REF) | payer MEDICARE ==
[2017-10-23 10:07] LABS: CARCINOEMBRYONIC ANTIGEN 4.1 NG/ML (<2.5)
== END ==
LOC: M LAB REF 13:52
DX: Z85.038 Personal history of other malignant neoplasm of large intestine (principal)
CPT/HCPCS: 82378

== ENCOUNTER → 2018-09-02 | Outpatient (CLI) | payer MEDICARE ==
[~2018-09-02] MED LIST changes: -/METO25TAB PO; -/NITR4TASL SL; +ACET-683 PO; +ALLE180T33 PO; +ASPI81TAEC PO; +B-COTAB10 PO; +CARV6.25 PO; +FENO145T13 PO; +FERR1TAB8 PO; +FLUTISP; +FURO20TA2 PO; +GASTROGRAFIN SOLUTION 30ML (Q9963) As Ordered ONE; +GLIP10TA PO; +IRON1TAB PO; +ISOVUE-370 76% 100ML VIAL (Q9967) As Ordered ONE; +LEVA750T7 PO; +LISI-542 PO; +METO1TAB87 PO; +NITR0.4S SL; +OMEP20CA3 PO; +PERC5TAB12 PO; +PLAV1TAB2 PO; +PROBCAP4 PO; +SIMV20TA2 PO; +SIMV40TA2 PO; +SYMB16INH INH; +TRAZ-252 PO; +TRUL0.5I SC; +VITA-157 PO
--- NOTE | 2018-09-02 15:12 | REP ---
CT chest with IV contrast: History: Colon cancer for restaging. Comparison chest CT study August 18, 2017. CT contrast dose: 100 mL of intravenous Isovue 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 There are clips in right upper quadrant of the abdomen. There is a granulomatous calcification in the lingular segment of left upper lobe unchanged. There are mild linear fibrotic changes bilaterally. No significant pulmonary nodule is appreciated. No pleural or pericardial effusion is seen. Vascular calcification is noted. No hilar or mediastinal mass or adenopathy is seen. No acute bony abnormality is seen. Old post-traumatic changes are noted at the shoulder on the right. Impression: No evidence of intrathoracic metastasis. Old granulomatous calcification. Vascular calcification, Nzouol-P-Ddxs catheter and pacemaker. Electronically Signed by Mika Crooks MD 09/02/2018 03:54 P
--- NOTE | 2018-09-02 15:12 | REP ---
CT ABDOMEN AND PELVIS WITH IV AND ORAL CONTRAST: HISTORY: Restaging for colon carcinoma. COMPARISON STUDY: August 06, 2016. CT CONTRAST DOSE: 100 mL of intravenous Isovue 370. CT FINDINGS: No focal hepatic mass lesion is observed. The spleen contains one or two granulomatous calcifications but is otherwise intact. There are clips in the gallbladder fossa. No abnormality is noted in the pancreas. No adrenal lesion is seen on either side. There is a cyst in the left kidney anteriorly at mid pole level measuring 2.6 cm in greatest diameter. This is unchanged. No retroperitoneal mass or adenopathy is observed. The patient appears to be status post ventral hernia repair. No abdominal wall defect is appreciated. Small bowel loops are unremarkable in the upper abdomen. A right colectomy has been performed. No pelvic mass or adenopathy is seen. Seminal vesicles, prostate, and urinary bladder are unremarkable. IMPRESSION: No CT evidence to suggest recurrence or metastatic disease. Status post right colectomy. Small left renal cysts. Post cholecystectomy. Electronically Signed by Mika Crooks MD 09/02/2018 03:54 P
== END ==
LOC: M RAD 10:32
PROVIDERS: ATTEND Nurse Practitioner Family
DX: C18.9 Malignant neoplasm of colon, unspecified (principal); Z95.0 Presence of cardiac pacemaker; J84.10 Pulmonary fibrosis, unspecified; N28.1 Cyst of kidney, acquired; Z90.49 Acquired absence of other specified parts of digestive tract
CPT/HCPCS: 71260; 74177; Q9963; Q9967

== ENCOUNTER → 2018-12-10 | Outpatient (REF) | payer MEDICARE ==
[~2018-12-10] MED LIST changes: +COLE1TAB PO; -FENO145T13 PO; +FENO145T7 PO; -GASTROGRAFIN SOLUTION 30ML (Q9963) As Ordered ONE; -ISOVUE-370 76% 100ML VIAL (Q9967) As Ordered ONE; +OMEP1CAP73 PO; -OMEP20CA3 PO; -OMEP40CA2 PO; +OMEP40CA97 PO; -SIMV20TA2 PO; +SIMV20TA22 PO; -SIMV40TA2 PO; +SIMV40TA20 PO
== END ==
LOC: M LAB REF 12:27
PROVIDERS: ATTEND Physician Assistant Medical
DX: R35.0 Frequency of micturition (principal)

== ENCOUNTER → 2020-08-20 | Outpatient (CLI) | payer MEDICARE ==
[~2020-08-20] MED LIST changes: +ASPI-569 PO; -ASPI81TAEC PO; +GASTROGRAFIN SOLUTION 30ML (Q9963) As Ordered ONE; +ISOVUE-370 76% 100ML VIAL As Ordered ONE; -LISI-542 PO; +LISI-898 PO; -VITA-157 PO; +VITAE40CA PO
--- NOTE | 2020-08-21 11:09 | REP ---
INDICATION: COLON CA F/U. COMPARISON: 09/02/2018. TECHNIQUE: CT chest performed following the intravenous administration of 100 cc of Isovue 370. Sagittal and coronal reconstruction images are performed. FINDINGS: Lungs: There is new 8 mm nodule in the left lower lobe, as seen on images 62 and 63. No infiltrate. Calcified granuloma is noted in the lingula and another in the right lower lobe. There is diffuse interstitial fibrosis. Mediastinum: No adenopathy. Gina: No adenopathy. Axilla: No adenopathy. Pleura: No effusion. Heart: There is mild cardiomegaly. Thoracic aorta: No aneurysm or dissection. Visualized osseous structures: There are degenerative changes of the spine without compression deformity. IMPRESSION: New 8 mm nodule left lower lobe. Recommend PET-CT evaluation or three-month follow-up chest CT. <Electronically signed by Ankur Vela > 08/21/20 [id number]
--- NOTE | 2020-08-21 11:18 | REP ---
INDICATION: COLON CA F/U COMPARISON: None. TECHNIQUE: CT Scan of the abdomen and pelvis was performed with intravenous administration of 100 cc of Isovue 370, and oral contrast. FINDINGS: Liver: Normal Gallbladder: Prior cholecystectomy. Spleen: Several calcified granulomas are seen in the spleen. Adrenals: Normal. Pancreas: Normal. Kidneys: There is a 2.5 cm cyst anteriorly in the mid left kidney. There is no hydronephrosis bilaterally. Small and large bowel: There has been a prior partial colectomy. There is sigmoid diverticulosis with no evidence for bowel wall thickening. Free fluid: None. Abdominal aorta: No aneurysm or dissection. Adenopathy: None. Osseous structures: There are degenerative changes of the spine. Pelvis: No mass. There is mild diastasis of the rectus muscles. IMPRESSION: No new suspicious mass or adenopathy as discussed above. <Electronically signed by Ankur Vela > 08/21/20 [id number]
== END ==
LOC: M RAD 16:46
PROVIDERS: ATTEND Internal Medicine Hematology & Oncology
DX: C18.9 Malignant neoplasm of colon, unspecified (principal)
CPT/HCPCS: 71260; 74177; Q9963; Q9967

== ENCOUNTER 2020-10-11 07:54 | Inpatient (IN) | payer MEDICARE ==
[~2020-10-11] VITALS: Ht 175.3 cm; Wt 121.3 kg
[~2020-10-11 07:54] MED LIST changes: -FLUTISP; +FLUTISP NARES; -GASTROGRAFIN SOLUTION 30ML (Q9963) As Ordered ONE; -ISOVUE-370 76% 100ML VIAL As Ordered ONE; +OMEP40CA4 PO; -OMEP40CA97 PO
[2020-10-11] MEDS ORDERED: ISOVUE-370 76% 100ML VIAL As Ordered ONE (08:23)
--- NOTE | 2020-10-11 08:28 | REP ---
INDICATION: CVA COMPARISON: 08/20/2017 TECHNIQUE: Portable AP view of the chest FINDINGS: The mediastinum and cardiac silhouette are stable and cardiomegaly with pacemaker again noted. Hqtmck-U-Qmpn identified with tip in the right atrium. The lung anderson are clear without acute consolidation, effusion, or pneumothorax. Skeletal structures are intact. IMPRESSION: No acute cardiopulmonary process appreciated. <Electronically signed by Nir Segovia > 10/11/20 [id number]
[2020-10-11 08:35] LABS: BASO % 0.6 % (0.0-1.0); EOS # 0.1 10^3/uL (0.0-0.5); EOS % 1.6 % (0.0-3.0); HEMATOCRIT 49.1 % (42.0-52.0); HEMOGLOBIN 15.9 g/dl (13.5-17.5); LYMPH # 1.1 10^3/uL (1.5-5.0); LYMPH % 22.2 % (24.0-44.0); MEAN CORPUSCULAR HEMOGLOBIN 29.4 pg (27.0-33.0); MEAN CORPUSCULAR HGB CONC 32.4 g/dl (32.0-36.5); MEAN CORPUSCULAR VOLUME 90.8 fl (80.0-96.0); MONO # 0.5 10^3/uL (0.0-0.8); MONO % 10.6 % (2.0-8.0); NEUTROPHILS # 3.2 10^3/uL (1.5-8.5); NEUTROPHILS % 64.6 % (36.0-66.0); PLATELET COUNT, AUTOMATED 160 10^3/uL (150-450); RED BLOOD COUNT 5.41 10^6/uL (4.30-6.10)
[2020-10-11 08:45] LABS: PARTIAL THROMBOPLASTIN TIME 25.5 SECONDS (24.2-38.5)
--- NOTE | 2020-10-11 08:48 | REP ---
INDICATION: CVA - Nursing interventions must not delay CT. COMPARISON: None. TECHNIQUE: Helical scanning is acquired. 5 mm axial images were reformatted. Coronal MPR images were generated. FINDINGS: Bone window settings demonstrate an intact bony calvarium. There is no evidence of skull fracture or incidental bony calvarial lesion. The visualized paranasal sinuses appear clear. No intraorbital abnormality is seen. On soft tissue window setting images; the lateral, third, and fourth ventricles are normal in size and position. Vela-white differentiation pattern is normal above and below the tentorium. There are is no evidence of intracranial hemorrhage. No evidence of intracranial mass lesion. No extra-axial fluid collection is appreciated. There is mild vascular calcification in the distal internal carotid arteries bilaterally. There is generalized volume loss. Mild periventricular low-density atherosclerotic changes. There is a focal low-density area in the left basal ganglia consistent with a lacunar infarct. This is most likely old although there are no prior studies. No other acute cortical infarction is seen. IMPRESSION: Generalized volume loss, small vessel changes and vascular calcification. 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 Otherwise no acute intracranial abnormality.. <Electronically signed by Marty Crooks > 10/11/20 [id number]
[2020-10-11] MEDS ORDERED: DULA3PEN SC (08:56)
[2020-10-11] MEDS ORDERED: ADME100I2 SC (08:56)
[2020-10-11] MEDS ORDERED: AMIO200T3 PO (08:56)
[2020-10-11] MEDS ORDERED: CARV25TA PO (08:56)
[2020-10-11] MEDS ORDERED: IRON65TA2 PO (08:56)
[2020-10-11 08:59] LABS: CK-MB VALUE MASS < 1.0 NG/ML (<3.6); CPK CREATINE PHOSPHOKINASE 58 U/L (39-308); MB/CK RELATIVE INDEX 1.72 (< OR =4); TROPONIN I 0.17 NG/ML (< 0.10)
[2020-10-11] MEDS ORDERED: OMEPRAZOLE 20 MG CAP PO SCH (09:00)
--- NOTE | 2020-10-11 09:19 | REPVR ---
PROCEDURE INFORMATION: Exam: CT Angiography Neck With Contrast Exam date and time: 10/11/2020 8:29 AM Age: 80 years old Clinical indication: Speech disturbance; Slurred speech; Additional info: CVA - nursing interventions must not delay CT TECHNIQUE: Imaging protocol: Computed tomography angiography of the neck with contrast. 3D rendering (Not supervised by radiologist): MIP and/or 3D reconstructed images were created by the technologist. Radiation optimization: All CT scans at this facility use at least one of these dose optimization techniques: automated exposure control; mA and/or kV adjustment per patient size (includes targeted exams where dose is matched to clinical indication); or iterative reconstruction. Contrast material: ISOVUE 370; Contrast volume: 100 ml; Contrast route: INTRAVENOUS (IV); COMPARISON: PT PET/CT Skull/mid thigh 01/13/2017 12:22 PM FINDINGS: Tubes, catheters and devices: There is massive reflux in the right jugular on the 1st acquisition reflecting stenosis of the right subclavian vein associated with presence of a pacemaker. Right common carotid artery: No stenosis. No dissection or occlusion. Right internal carotid artery: There is mild calcification of the right internal carotid origin with less than 50% compromise of the lumen. There is some soft plaque posteromedially without demonstration of an ulcer. Right external carotid artery: No occlusion or stenosis of the origin. Left common carotid artery: No stenosis. No dissection or occlusion. Left internal carotid artery: There is moderate calcification of the left internal carotid origin with less than 50% compromise of the lumen. Left external carotid artery: No occlusion or stenosis of the origin. Right vertebral artery: No stenosis. No dissection or occlusion. Left vertebral artery: No stenosis. No dissection or occlusion. Aorta: A 2nd acquisition 47 seconds later demonstrates better arterial phase opacification measuring 146 units in the aorta. Thyroid: The thyroid gland is normal. Soft tissues: See "Right internal carotid artery" finding. Bones/joints: The spine demonstrates moderate degenerative changes at multiple levels. IMPRESSION: 1. There is massive reflux in the right jugular on the 1st acquisition reflecting stenosis of the right subclavian vein associated with presence of a pacemaker. 2. There is mild calcification of the right internal carotid origin with less than 50% compromise of the lumen. There is some soft plaque posteromedially without demonstration of an ulcer. 3. There is moderate calcification of the left internal carotid origin with less than 50% compromise of the lumen. 4. There are codominant vertebral arteries with no stenosis or dissection. REFERENCES: NASCET CRITERIA. The degree of internal carotid artery stenosis is based on NASCET criteria. Normal is no stenosis. Mild is less than 50% stenosis. Moderate is 50-69% stenosis. Severe is 70% to 99% stenosis. Total occlusion is no detectable patent lumen. Electronically signed by: Jon Cano On 10/11/2020 09:19:23 AM
--- NOTE | 2020-10-11 09:34 | REPVR ---
PROCEDURE INFORMATION: Exam: CT Angiography Head With Contrast, Arteriography Exam date and time: 10/11/2020 8:29 AM Age: 80 years old Clinical indication: Speech disturbance; Slurred speech; Additional info: CVA - nursing interventions must not delay CT TECHNIQUE: Imaging protocol: Computed tomography angiography of the head with contrast. Exam focused on the arteries. 3D rendering (Not supervised by radiologist): MIP and/or 3D reconstructed images were created by the technologist. Radiation optimization: All CT scans at this facility use at least one of these dose optimization techniques: automated exposure control; mA and/or kV adjustment per patient size (includes targeted exams where dose is matched to clinical indication); or iterative reconstruction. Contrast material: ISOVUE 370; Contrast volume: 100 ml; Contrast route: INTRAVENOUS (IV); COMPARISON: PT PET/CT Skull/mid thigh 01/13/2017 12:22 PM FINDINGS: ANTERIOR CIRCULATION: Right internal carotid artery: Unremarkable. Intracranial segment is patent with no significant stenosis. No aneurysm. Right middle cerebral artery: Unremarkable. No occlusion or significant stenosis. No aneurysm. Right anterior cerebral artery: Unremarkable. No occlusion or significant stenosis. No aneurysm. Left internal carotid artery: Unremarkable. Intracranial segment is patent with no significant stenosis. No aneurysm. Left middle cerebral artery: Unremarkable. No occlusion or significant stenosis. No aneurysm. Left anterior cerebral artery: Unremarkable. No occlusion or significant stenosis. No aneurysm. POSTERIOR CIRCULATION: Right vertebral artery: Unremarkable. No occlusion or significant stenosis. No aneurysm. Left vertebral artery: Unremarkable. No occlusion or significant stenosis. No aneurysm. Basilar artery: Unremarkable. No occlusion or significant stenosis. No aneurysm. Right posterior cerebral artery: Unremarkable. No occlusion or significant stenosis. No aneurysm. Left posterior cerebral artery: Unremarkable. No occlusion or significant stenosis. No aneurysm. 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 Brain: There is no evidence of intracranial large vessel stenosis or occlusion. Cerebral ventricles: No ventriculomegaly. Bones/joints: Unremarkable. No acute fracture. Soft tissues: Unremarkable. IMPRESSION: 1. 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 2. There is no evidence of intracranial large vessel stenosis or occlusion. Electronically signed by: Jon Cano On 10/11/2020 09:33:33 AM
[2020-10-11 10:49] LABS: RSV AMPLIFICATION NEGATIVE (NEGATIVE)
[2020-10-11 11:31] LABS: INR 0.89; PROTHROMBIN TIME 12.2 SECONDS (12.5-14.3)
[2020-10-11] MEDS ORDERED: GLUCOSE 4GM CHEW TABLET PO PRN (11:40)
[2020-10-11] MEDS ORDERED: ALBUTEROL SULFATE 2.5 MG/0.5 ML INH NEB SOLN INH PRN (11:40)
[2020-10-11] MEDS ORDERED: DEXTROSE 50% 50 ML SYRINGE IV PRN (11:40)
[2020-10-11] MEDS ORDERED: GLUCAGON INJ 1MG VIAL SC PRN (11:40)
--- NOTE | 2020-10-11 12:33 | HPE ---
HISTORY AND PHYSICAL DATE OF ADMISSION: 10/11/2020 CHIEF COMPLAINT: Aphasia, ? TIA. HISTORY: Bryson Baugh is a 80 year old with multiple vascular risk factors who was aphasic for a few hours today. Speech when he arrived to the emergency room was slightly aphasic. According to his grandson, he is back to his baseline speech patterns. He has no stroke identified on brain imaging. He denies any headache, focal weakness, numbness, or coordination difficulties in arms or legs, palpitations, or syncope. His repair technician is Dr. Montano Murchison, and he has an ICD in place. PAST MEDICAL HISTORY: 1. Right sided T3 N1 M0 stage 3B colon cancer in 2013 status post right colectomy and ileal resection in September 2013. He then underwent splenic flexure colon resection 02/18 for a second moderately differentiated adenocarcinoma with invasion into the muscular propria T2 N0 stage 3A. He is followed by [facility] as well as an oncologist in [place], [place], where he burgos. He is currently being worked up for an 8 mm nodule in his left lower lobe found on a CT of the chest done on 08/20/2020. Being followed by [facility] for that as well. 2. Coronary artery disease status post anterolateral MD 11/16. He had an ejection fraction documented at 35% and stenting of the LAD done 2003. He has an ICD in place. I do not have access to recent echocardiographic data. He will be getting an echo during this admission. 3. Hypertensive heart disease. 4. Type 2 diabetes. 5. Chronic anemia. PAST SURGICAL HISTORY: 1. Appendectomy. 2. Stenting of the LAD. 3. Umbilical hernia repair. 4. Two partial colectomies for colon cancer in 2013 and 2014 as summarized above. SOCIAL HISTORY: Quit smoking 40 years ago. No alcohol use. FAMILY HISTORY: A paternal grandfather had colon cancer. HOME MEDICATIONS: 1. Amiodarone 200 mg daily. 2. Aspirin 81 mg daily. 3. Symbicort 160-4.5 two inhalations b.i.d. 4. Carvedilol 25 mg b.i.d. 5. Fenofibrate 145 mg daily. 6. Ferrous sulfate 325 mg at bedtime. 7. Fluticasone nasal spray. 8. Furosemide 20 mg daily. 9. Omeprazole 20 mg daily. 10. Simvastatin 20 mg three days a week. 11. Trazodone 100 mg at bedtime. 12. Trulicity 3 mg at bedtime. 13. Lispro on a sliding scale before meals. ALLERGIES: None known. REVIEW OF SYSTEMS: No recent palpitations, chest pain, syncope, lightheadedness, dizziness, focal weakness, or visual disturbance. No epistaxis, rectal bleeding, urinary bleeding, fever, chills, or night sweats. PHYSICAL EXAMINATION: VITAL SIGNS: 143/73, pulse of around 40 to 50, respiratory rate 18, 95% O2 saturation. GENERAL APPEARANCE: Alert, conversant, resting comfortably in no distress. HEENT: No facial droop or weakness. Pupils equal, round, and react to light. Tongue midline. NECK: Supple. Bilateral soft carotid bruits but good carotid upstrokes. LUNGS: Clear. HEART: Regular without murmur. He has a loud right supraclavicular bruit. ABDOMEN: Soft, nontender. No masses. No organomegaly. EXTREMITIES: No clubbing, cyanosis, or edema. Normal strength in the arms and legs. 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 Normal reflexes. Normal sensation. I did not test his gait. Distal pulses are preserved. LABORATORY DATA: White count 5, hemoglobin 15.9, platelets 160. Troponin 1.78. COVID test negative. Electrolytes: Sodium 139, potassium 4.4, BUN 27, creatinine 1.2, glucose 280. PT/PTT normal. CT of the head unremarkable. Chest x-ray: No acute findings. Fpnwmo-G-Dyba present. CT angiogram showed a high grade stenosis right subclavian vein. No intracranial vessel occlusion or stenosis. Neck CTA did not show any carotid stenosis, less than 50% bilaterally. Massive reflux in the right jugular vein reflecting stenosis of the right subclavian vein in the presence of pacemaker. IMPRESSION: 1. TIA with aphasia. Symptoms seem to have improved. He is back to baseline speech. I will admit him to a telemetry bed. Will get an echocardiogram. Carotids have already been imaged. Will ask Speech Therapy to see him. Therapeutically will add Plavix 75 mg daily to his aspirin he was already taking. Permissive elevation of blood pressure to be continued. 2. Coronary artery disease. Troponin was mildly elevated. Could be related to the cerebral ischemic event. Serial troponins have been ordered. EKG in the emergency room was reviewed and shows sinus bradycardia. 3. Diabetes. Will hold his current home regimen. Sliding scale insulin coverage based upon finger stick blood sugars ordered. Hemoglobin A1c ordered. 4. Hypertensive heart disease. Permission hypertension during this acute event. Will try to keep his systolic blood pressure up in the 140 range. Continue carvedilol 25 mg b.i.d. and furosemide 20 mg daily. 5. Hyperlipidemia in the face of acute cerebral ischemic event. We will stop the simvastatin and place him on atorvastatin using a moderate dose of 40 mg daily due to his age over 77. 6. Presumed cardiomyopathy. Last ejection fraction was noted to be 35%. He has an ICD in place and takes amiodarone. 7. COPD. Continue his budesonide inhaler. Nebulized albuterol on a p.r.n. basis ordered. 8. History of anemia. His hemoglobin is normal. I do not see any reason for him to stay on iron. We will discontinue this. 9. Left lung pulmonary nodule. This is being worked up by Oncology. No evidence of metastatic disease on brain imaging. We cannot do MRI due to ICD in place.
[2020-10-11] MEDS: FUROSEMIDE 20 MG TAB PO SCH (13:32)
[2020-10-11] MEDS: ATORVASTATIN 20 MG TAB PO SCH (13:32)
[2020-10-11] MEDS: AMIODARONE 200 MG TAB (PACERONE) PO SCH (13:32)
[2020-10-11] MEDS: HumaLOG INSULIN (NovoLOG) PER UNIT SC SCH ×3 (13:33→21:00)
[2020-10-11] MEDS: CARVedilol 12.5 MG TAB PO SCH ×2 (13:33→21:00)
[2020-10-11] MEDS: ENOXAPARIN 40MG/0.4ML SYRINGE (J1650 PER 10MG) SC SCH (14:16)
[2020-10-11] MEDS: CLOPIDOGREL 75 MG TAB PO SCH (14:16)
[2020-10-11] MEDS: FLUTICASONE PROP 0.05% NASAL SPRAY 16 GM (FLONASE) NARES SCH (14:17)
[2020-10-11] MEDS: SYMBICORT 160/4.5MCG INHALER 6GM INH SCH ×2 (14:29→20:04)
[2020-10-11 18:15] VITALS: BP 149/68
[2020-10-11 18:46] LABS: CK-MB VALUE MASS < 1.0 NG/ML (<3.6); CPK CREATINE PHOSPHOKINASE 61 U/L (39-308); MB/CK RELATIVE INDEX 1.64 (< OR =4); TROPONIN I 0.19 NG/ML (< 0.10)
--- NOTE | 2020-10-11 19:09 | ECHO ---
ECHOCARDIOGRAM DATE OF PROCEDURE: 10/11/2020 Age: 80 Gender: Male Height: 175 cm Weight: 122 kg REFERRING PHYSICIAN: Cory Perdomo MD. INDICATION: Transient ischemic attack (TIA). MEASUREMENTS: IVS 0.8 cm LV 6.9 cm LVPW 1.2 cm LA 3.9 cm Aorta 3.7 cm Mitral E wave velocity 29 cm/s Mitral A wave 64 cm/s FINDINGS: This study is of very limited technical quality with poor visualization. The patient is in sinus rhythm with bradycardic rate and wide QRS complex. Left ventricle is markedly dilated. It is severely globally hypokinetic. Based on limited views, I estimate ejection fraction in the neighborhood of 20%. The right ventricle appears normal size, it was poorly visualized. Both atria are at least mildly enlarged. There is an echo artifact in right-sided heart chambers corresponding to pacemaker or ICD lead. Aortic valve it tricuspid and it is mildly sclerotic, but mobility is preserved. The same applies for mitral valve with degenerative abnormalities and mitral annular calcifications, but preserved mobility. The tricuspid valve was poorly seen, but grossly appears normal. Pulmonic valve also appears normal. Small noncompressive pericardial effusion is noted. Left pleural effusion is seen. Aortic root is normal. Aortic arch, abdominal aorta, and ascending aorta were poorly visualized. Doppler interrogation revealed no significant aortic disease. There is trace mitral insufficiency. Limited views of the tricuspid valve indicate no insufficiency. Trace pulmonic insufficiency is seen. Mitral inflow pattern indicates grade 1 diastolic dysfunction. CONCLUSIONS: 1. Study is of markedly limited technical quality, underlying sinus bradycardia with wide QRS complex. 2. Severely dilated left ventricle with severe global hypokinesis. I cannot rule out segmental wall motion abnormalities based on limited views. Overall EF is severely reduced, I estimate approximately 20% based on poor quality images. 3. Normal RV size. 4. Biatrial enlargement. 5. No hemodynamically significant valvular disease. 6. Small pericardial effusion. 7. Left pleural effusion. 8. Unable to estimate central venous pressure and pulmonary artery pressure. MTDD
[2020-10-11 20:00] VITALS: BP 135/81
[2020-10-11] MEDS: FENOFIBRATE 145 MG TAB (TRICOR) PO SCH (20:58)
[2020-10-11] MEDS: traZODone 100 MG TAB PO SCH (20:59)
[2020-10-11] MEDS: ASPIRIN 81MG ENTERIC TABLET PO SCH (20:59)
[2020-10-11] MEDS ORDERED: FERROUS SULFATE 325MG TAB PO SCH (21:00)
[2020-10-12] VITALS: BP 120/61
[2020-10-12 02:10] LABS: CK-MB VALUE MASS 1.2 NG/ML (<3.6); MB/CK RELATIVE INDEX 2.22 (< OR =4); TROPONIN I 0.18 NG/ML (< 0.10)
[2020-10-12 04:10] VITALS: BP 112/60
[2020-10-12] MEDS ORDERED: NS 500 ML IV ONE (04:55)
[2020-10-12 05:35] LABS: HEMATOCRIT 44.4 % (42.0-52.0); HEMOGLOBIN 14.5 g/dl (13.5-17.5); MEAN CORPUSCULAR HEMOGLOBIN 29.2 pg (27.0-33.0); MEAN CORPUSCULAR HGB CONC 32.7 g/dl (32.0-36.5); MEAN CORPUSCULAR VOLUME 89.3 fl (80.0-96.0); PLATELET COUNT, AUTOMATED 147 10^3/uL (150-450); RED BLOOD COUNT 4.97 10^6/uL (4.30-6.10); WHITE BLOOD COUNT 5.1 10^3/uL (4.0-10.0)
[2020-10-12 06:06] LABS: BLOOD UREA NITROGEN 18 MG/DL (7-18); CALCIUM LEVEL 8.8 MG/DL (8.8-10.2); CARBON DIOXIDE LEVEL 25 MEQ/L (21-32); CHLORIDE LEVEL 104 MEQ/L (98-107); CREATININE FOR GFR 1.16 MG/DL (0.70-1.30); GLOMERULAR FILTRATION RATE > 60.0 (>42); GLUCOSE, FASTING 229 MG/DL (70-100); POTASSIUM SERUM 3.8 MEQ/L (3.5-5.1); SODIUM LEVEL 139 MEQ/L (136-145)
[2020-10-12 08:00] VITALS: BP 132/67
[2020-10-12] MEDS: SYMBICORT 160/4.5MCG INHALER 6GM INH SCH ×2 (08:00→20:20)
[2020-10-12] MEDS: HumaLOG INSULIN (NovoLOG) PER UNIT SC SCH ×4 (08:20→20:37)
[2020-10-12] MEDS: ENOXAPARIN 40MG/0.4ML SYRINGE (J1650 PER 10MG) SC SCH (08:20)
[2020-10-12] MEDS: CLOPIDOGREL 75 MG TAB PO SCH (08:21)
[2020-10-12] MEDS: PANTOPRAZOLE 40MG TAB (PROTONIX) PO SCH (08:21)
[2020-10-12] MEDS: ATORVASTATIN 20 MG TAB PO SCH (08:21)
[2020-10-12] MEDS: CARVedilol 12.5 MG TAB PO SCH ×2 (08:21→21:00)
[2020-10-12] MEDS: FUROSEMIDE 20 MG TAB PO SCH (08:22)
[2020-10-12] MEDS: AMIODARONE 200 MG TAB (PACERONE) PO SCH (08:22)
[2020-10-12] MEDS: FLUTICASONE PROP 0.05% NASAL SPRAY 16 GM (FLONASE) NARES SCH (09:39)
[2020-10-12 10:01] LABS: CK-MB VALUE MASS < 1.0 NG/ML (<3.6); CPK CREATINE PHOSPHOKINASE 61 U/L (39-308); MB/CK RELATIVE INDEX 1.64 (< OR =4); TROPONIN I 0.17 NG/ML (< 0.10)
--- NOTE | 2020-10-12 11:03 | IPN ---
PROGRESS NOTE DATE: 10/12/2020 SUBJECTIVE: Bryson is seen in the PCU. He was admitted with aphasia. He looks clinically to have had a stroke. He has right upper extremity weakness and loss of coordination that was not as apparent yesterday. His aphasia but the right upper extremity weakness is worse. He has a history of dilated cardiomyopathy. We did an echocardiogram, ejection fraction severely reduced at 20%, bi-atrial enlargement was noted. Markedly dilated left ventricle with global hypokinesis. No significant valvular abnormality. The nursing staff notes that he has had bradycardic episodes going down into the mid 30s despite having a pacemaker/ICD. The patient denies headache, palpitations, chest pain, epistaxis, or rectal bleeding. OBJECTIVE: VITAL SIGNS: Blood pressure 142/79, pulse 62, 96% O2 saturation. GENERAL APPEARANCE: There is slight right facial weakness. Speech is normal. No dysarthria. His speech is fluent. NEUROLOGIC: Right upper extremity is Grade 4+/5, right lower extremity is normal. The left side is normal. LUNGS: Clear. HEART: Regular rate and rhythm. ABDOMEN: Obese, obese, nontender. EXTREMITIES: Trace peripheral edema. LABORATORY DATA: Troponins are flat, they are mildly elevated at approximately 0.18 but they are perfectly flat so that must be his baseline troponin. Electrolytes unremarkable; potassium 3.8, white count normal, hemoglobin normal. IMPRESSION: 1. 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 We added Plavix 75 mg daily to his aspirin 81 daily. The case was discussed with Dr. Rascon, his physician and primary care provider. I also called patient's Giselle, we discussed the case as well. 2. Bradycardia, ? pacemaker malfunction. I consulted the on-call non licensed operator, he refused the consult, suggested that I find the sales and merchandising associate from the pacemaker company. I called Dr. Rascon's office, they indicated it is a [employer] pacemaker but they did not have the name of an active senior customer service representative for that company although they did have a name (Mika Reyes at [phone]) but they are not sure whether he is still with the company. I called [employer], the customer service line and left a message with the expectation they would call back. As of this point, they still have it. 3. Hypertensive heart disease. Blood pressure is under good control, permissive hypertension acceptable at this point. 4. Type 2 diabetes, sliding scale insulin coverage, his current medications are on hold. [facility] uses [facility] as an [facility]. He would be a good candidate for an SGLT1 agent such as Thao with his history of congestive heart failure and diabetes, (unfortunately these are not on formulary and I cannot start them in the hospital). 5. Dilated cardiomyopathy with severely reduced ejection fraction. He is compensated on exam. Continue his amiodarone and Carvedilol. He is not on NELLIE inhibitor nor Entresto, reasons I do not have documentation of but I assume they are valid. He is followed closely by cardiology. 6. Hyperlipidemia. I stopped the simvastatin, we changed to moderate intensity atorvastatin (dose adjusted to moderate intensity due to age). Atorvastatin 40 mg daily.
[2020-10-12 11:46] LABS: HEMOGLOBIN A1c 9.9 %
[2020-10-12 16:26] VITALS: BP 106/64
--- NOTE | 2020-10-12 16:33 | ECGEPIP ---
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
--- NOTE | 2020-10-12 17:13 | IPN ---
PROGRESS NOTE DATE: 10/12/2020 SUBJECTIVE: Bryson's pacemaker was interrogated by Elaine Reyes, the healthcare representative from [employer]. She says that the pacemaker is programmed at a lower rate of 40 and is functioning normally. It has a normal histogram as far as heart rates ranging 40-110 and that all measured capacities were within the programmed parameters.
[2020-10-12 20:00] VITALS: BP 120/63
[2020-10-12] MEDS: traZODone 100 MG TAB PO SCH (20:47)
[2020-10-12] MEDS: FENOFIBRATE 145 MG TAB (TRICOR) PO SCH (20:47)
[2020-10-12] MEDS: ASPIRIN 81MG ENTERIC TABLET PO SCH (20:48)
[2020-10-13] VITALS: BP 131/66
[2020-10-13 04:00] VITALS: BP 129/65
[2020-10-13 05:54] LABS: HEMATOCRIT 42.5 % (42.0-52.0); HEMOGLOBIN 13.8 g/dl (13.5-17.5); MEAN CORPUSCULAR HEMOGLOBIN 29.2 pg (27.0-33.0); MEAN CORPUSCULAR HGB CONC 32.5 g/dl (32.0-36.5); MEAN CORPUSCULAR VOLUME 89.9 fl (80.0-96.0); PLATELET COUNT, AUTOMATED 147 10^3/uL (150-450); RED BLOOD COUNT 4.73 10^6/uL (4.30-6.10); WHITE BLOOD COUNT 5.1 10^3/uL (4.0-10.0)
[2020-10-13 06:22] LABS: BLOOD UREA NITROGEN 20 MG/DL (7-18); CALCIUM LEVEL 8.3 MG/DL (8.8-10.2); CARBON DIOXIDE LEVEL 28 MEQ/L (21-32); CHLORIDE LEVEL 103 MEQ/L (98-107); CREATININE FOR GFR 1.21 MG/DL (0.70-1.30); GLOMERULAR FILTRATION RATE > 60.0 (>42); GLUCOSE, FASTING 246 MG/DL (70-100); SODIUM LEVEL 137 MEQ/L (136-145)
[2020-10-13] MEDS: SYMBICORT 160/4.5MCG INHALER 6GM INH SCH (07:17)
[2020-10-13] MEDS: HumaLOG INSULIN (NovoLOG) PER UNIT SC SCH (08:32)
[2020-10-13] MEDS: PANTOPRAZOLE 40MG TAB (PROTONIX) PO SCH (08:33)
[2020-10-13] MEDS: AMIODARONE 200 MG TAB (PACERONE) PO SCH (08:33)
[2020-10-13] MEDS: ENOXAPARIN 40MG/0.4ML SYRINGE (J1650 PER 10MG) SC SCH (08:33)
[2020-10-13] MEDS: ATORVASTATIN 20 MG TAB PO SCH (08:33)
[2020-10-13] MEDS: CLOPIDOGREL 75 MG TAB PO SCH (08:33)
[2020-10-13] MEDS: FUROSEMIDE 20 MG TAB PO SCH (08:33)
[2020-10-13] MEDS: FLUTICASONE PROP 0.05% NASAL SPRAY 16 GM (FLONASE) NARES SCH (08:33)
[2020-10-13 08:34] VITALS: BP 118/62
[2020-10-13] MEDS: CARVedilol 12.5 MG TAB PO SCH (08:34)
[2020-10-13] MEDS ORDERED: ATOR1TAB21 PO (09:34)
[2020-10-13] MEDS ORDERED: CLOP75TA2 PO (09:34)
--- NOTE | 2020-10-13 11:24 | DSES ---
DISCHARGE SUMMARY DATE OF ADMISSION: 10/12/2020 DATE OF DISCHARGE: 10/13/2020 DIAGNOSIS: Stroke with right upper extremity weakness and aphasia. SECONDARY DIAGNOSES: 1. Type 2 diabetes under poor control. 2. Dilated cardiomyopathy with congestive heart failure and reduced ejection fraction. 3. Status post pacemaker/implantable cardioverter defibrillator. 4. Bradycardia (pacemaker functioning normally). 5. Hypertensive heart disease. 6. Hyperlipidemia. 7. Coronary artery disease, status post myocardial infarction with left anterior descending stenting in the remote past. 8. Chronic obstructive pulmonary disease. 9. Left lung nodule. 10. 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 HISTORY: Patient was admitted with aphasia. See details in history and physical of admission. HOSPITAL COURSE: Admitted to telemetry bed. He had some bradycardic episodes. We called his pacemaker company, and a customer care representative came, interrogated the pacemaker, and it was functioning within program parameters. He evidenced right upper extremity weakness the day after admission. Weakness remained stable during his hospitalization. Physical therapy saw him. We could not do an MRI because of his pacemaker so he had CTs done. Nothing acute was found. He also did not have any significant carotid artery stenoses. With less than 50% stenosis of left and right internal carotid artery bilaterally. They did note massive reflux in the right jugular vein, reflecting stenosis of right subclavian vein. His diabetes is under poor control. His hemoglobin A1c is over 9. I spoke to his , Regina, both yesterday and today. She indicates that he often forgets his insulin. She has to watch him closely to make sure he takes it. Considering of endocrinology referral was discussed as an outpatient. His blood pressure remained stable during the course of his hospitalization. On day of discharge he is resting comfortably. His blood pressure (BP) is 129/65, pulse 55, respirations 18, 95% oxygen saturation. He is alert, oriented, and conversant. Lungs clear. Heart regular rate and rhythm. No carotid bruits. Abdomen soft, nontender. No masses. No peripheral edema. Right upper extremity has 4/5 strength with weak fruit loader and weak biceps/triceps strength. Right lower extremity strength is normal. There is subtle right facial weakness. His speech is now fluent without any dysarthria. Left-sided strength, reflexes, coordination all normal. LABORATORY DATA: White count 5.1, hemoglobin 13.8, platelets 147. Sodium 137, potassium 4, BUN 20, creatinine 1.2. Hemoglobin A1c is 9.9. As mentioned previously, troponin remains chronically elevated without peak. His troponin looks like it is usually around 0.18. Echocardiogram was obtained. It showed severely dilated hypokinetic left ventricle with an ejection fraction of 20%. Left atrial dilatation noted. Biatrial enragement noted. The subclavian vein stenosis, as noted previously. DISPOSITION: He is discharged home improved in stable condition. I discussed discharge with his , Regina. He already has an appointment with his primary care provider on October 15. They can make arrangements for home physical therapy then. As noted previously, his pacemaker was checked by the industry customer care representative. It is functioning within programmed parameters. He is on a no-added salt, low-fat and cholesterol, consistent-carbohydrate diet, 2-gram sodium restriction and 1800 mL per day fluid restriction. His medicines will continue to be : - amiodarone 200 mg daily - aspirin 81 mg daily - Symbicort 160/4.5 two puffs twice a day - carvedilol 25 mg twice a day - Trulicity 3 mg weekly - fenofibrate 145 mg daily - fluticasone two sprays daily - furosemide 20 mg daily - sliding-scale insulin - omeprazole 20 mg daily - trazodone 100 mg every night We changed his simvastatin to atorvastatin 40 mg daily. We started Plavix 75 mg daily. We discontinued iron supplementation. He has no iron deficiency. At the time of this dictation, there are no pending labs.
== END 2020-10-13 11:40 | disposition home or self-care (01) | DRG 65 ==
LOC: EDBD 07:54 → M ED 07:54 → M ED INP 12:27 → ENRESERV 17:05 → M PCU 18:00 → OBSVTOIN 10-12 10:37
PROVIDERS: ADMIT Family Medicine; ATTEND Family Medicine
DX: I63.512 Cerebral infarction due to unspecified occlusion or stenosis of left middle cerebral artery (principal); I42.9 Cardiomyopathy, unspecified; Z87.891 Personal history of nicotine dependence; Z85.038 Personal history of other malignant neoplasm of large intestine; R91.8 Other nonspecific abnormal finding of lung field; I25.10 Atherosclerotic heart disease of native coronary artery without angina pectoris; Z95.810 Presence of automatic (implantable) cardiac defibrillator; E11.9 Type 2 diabetes mellitus without complications; D50.0 Iron deficiency anemia secondary to blood loss (chronic); I11.0 Hypertensive heart disease with heart failure; R47.01 Aphasia; E78.5 Hyperlipidemia, unspecified; J44.9 Chronic obstructive pulmonary disease, unspecified; R00.1 Bradycardia, unspecified; R53.1 Weakness; I50.9 Heart failure, unspecified; Z91.14 Patient's other noncompliance with medication regimen; Z79.82 Long term (current) use of aspirin; Z79.4 Long term (current) use of insulin; Z79.899 Other long term (current) drug therapy

== ENCOUNTER 2021-11-27 21:43 | Emergency (ER) | payer MEDICARE ==
[~2021-11-27] VITALS: Ht 175.3 cm; Wt 119.2 kg
[~2021-11-27 21:43] MED LIST changes: +ADME100I2 SC; +AMIO200T49 PO; +ATOR1TAB21 PO; +CARV25TA PO; +DULA3PEN SC; +IRON65TA2 PO; -LISI-898 PO; +LISI5TAB11 PO
[2021-11-27] MEDS: COMBIVENT RESPIMAT 100-20MCG INHALER 4GM INH SCH ×3 (22:38→23:20)
[2021-11-27 22:53] LABS: ABG BASE EXCESS -1.4 (-2.0-2.0); ABG O2 SATURATION 95.7 % (95.0-99.0); ABG PARTIAL PRESSURE O2 77.4 mmHg (75.0-100.0); ABG STANDARD HCO3 23.2 MEQ/L (22.0-26.0); ABG TOTAL CO2 24.1 MEQ/L (23.0-31.0); ABG pH (ARTERIAL) 7.399 UNITS (7.350-7.450)
[2021-11-27 23:02] LABS: BASO % 0.5 % (0.0-1.0); EOS # 0.1 10^3/uL (0.0-0.5); EOS % 1.2 % (0.0-3.0); HEMATOCRIT 51.5 % (42.0-52.0); HEMOGLOBIN 16.8 g/dl (13.5-17.5); LYMPH # 1.5 10^3/uL (1.5-5.0); LYMPH % 17.5 % (24.0-44.0); MEAN CORPUSCULAR HEMOGLOBIN 29.8 pg (27.0-33.0); MEAN CORPUSCULAR HGB CONC 32.6 g/dl (32.0-36.5); MEAN CORPUSCULAR VOLUME 91.5 fl (80.0-96.0); MONO # 0.7 10^3/uL (0.0-0.8); MONO % 8.5 % (2.0-8.0); NEUTROPHILS % 71.8 % (36.0-66.0); PLATELET COUNT, AUTOMATED 167 10^3/uL (150-450); RED BLOOD COUNT 5.63 10^6/uL (4.30-6.10); WHITE BLOOD COUNT 8.4 10^3/uL (4.0-10.0)
[2021-11-27 23:17] LABS: ALBUMIN 3.5 GM/DL (3.2-5.2); BILIRUBIN,DIRECT 0.3 MG/DL (0.0-0.2); BILIRUBIN,TOTAL 1.5 MG/DL (0.2-1.0); CALCIUM LEVEL 9.1 MG/DL (8.8-10.2); CREATININE FOR GFR 1.32 MG/DL (0.70-1.30); GLOMERULAR FILTRATION RATE 55.7 (>42); POTASSIUM SERUM 4.5 MEQ/L (3.5-5.1); TOTAL PROTEIN 6.9 GM/DL (6.4-8.2)
[2021-11-27 23:25] LABS: CK-MB VALUE MASS 1.3 NG/ML (<3.6); MB/CK RELATIVE INDEX 1.73 (< OR =4)
[2021-11-27] MEDS ORDERED: ISOVUE-370 76% 100ML VIAL As Ordered ONE (23:26)
[2021-11-27] MEDS ORDERED: ASPIRIN 81 MG CHEW TABLET PO ONE (23:30)
[2021-11-28 00:19] LABS: CK-MB VALUE MASS 1.4 NG/ML (<3.6); MB/CK RELATIVE INDEX 2.33 (< OR =4)
[2021-11-28] MEDS ORDERED: HEPARIN SOD (PORCINE) 5000UNITS/ML 1ML VIAL/SYRINGE IV ONE (01:00)
[2021-11-28] MEDS ORDERED: FUROSEMIDE 100MG/10ML VIAL (J1940) IV ONE (01:00)
[2021-11-28] MEDS ORDERED: HEPARIN DRIP 25,000 UNITS in IV 1 EA IV SCH ×2 (01:00→01:05)
[2021-11-28] MEDS ORDERED: HEPARIN SOD (PORCINE) 5000UNITS/ML 1ML VIAL/SYRINGE IV PRN (01:05)
[2021-11-28 02:22] LABS: HEMATOCRIT 50.6 % (42.0-52.0); HEMOGLOBIN 16.2 g/dl (13.5-17.5); MEAN CORPUSCULAR HEMOGLOBIN 29.2 pg (27.0-33.0); MEAN CORPUSCULAR VOLUME 91.3 fl (80.0-96.0); PLATELET COUNT, AUTOMATED 147 10^3/uL (150-450); RED BLOOD COUNT 5.54 10^6/uL (4.30-6.10); WHITE BLOOD COUNT 8.5 10^3/uL (4.0-10.0)
[2021-11-28 02:44] LABS: INR 0.99; PROTHROMBIN TIME 13.5 SECONDS (12.7-14.5)
[2021-11-28 02:45] LABS: PARTIAL THROMBOPLASTIN TIME 28.9 SECONDS (25.9-37.0)
[2021-11-28 06:29] VITALS: BP 124/71
== END 2021-11-28 06:33 | disposition short-term general hospital (02) ==
LOC: M ED 21:43
DX: I21.4 Non-ST elevation (NSTEMI) myocardial infarction (principal); I50.9 Heart failure, unspecified; R91.8 Other nonspecific abnormal finding of lung field; I25.2 Old myocardial infarction; I25.10 Atherosclerotic heart disease of native coronary artery without angina pectoris; E11.9 Type 2 diabetes mellitus without complications; I10 Essential (primary) hypertension; Z85.038 Personal history of other malignant neoplasm of large intestine; Z95.5 Presence of coronary angioplasty implant and graft; Z87.891 Personal history of nicotine dependence; I51.7 Cardiomegaly
CPT/HCPCS: 36600; 71045; 71275; 80048; 80076; 82550; 82553; 82803; 83605; 83880; 84484; 85025; 85027; 85610; 85730; 87040; 87486; 87581; 87633; 87798; 93005; 93041; 94640; 94760; 96361; 96374; 99285; J1644; J1940; Q9967

== ENCOUNTER → 2023-10-27 | Outpatient (CLI) | payer MEDICARE ==
[~2023-10-27] MED LIST changes: +CLOP75TA99 PO; -PLAV1TAB2 PO
== END ==
LOC: M RAD 13:18
PROVIDERS: ATTEND Physician Assistant Medical
DX: R06.02 Shortness of breath (principal); R05.9 Cough, unspecified; J18.9 Pneumonia, unspecified organism

== ENCOUNTER → 2024-03-11 | Outpatient (REF) | payer MEDICARE, OTHER | LOC: M LAB REF 13:03 | PROVIDERS: ATTEND Physician Assistant Medical | DX: B34.9 Viral infection, unspecified (principal) ==

== ENCOUNTER → 2025-03-07 | Outpatient (REF) | payer MEDICARE, OTHER ==
[~2025-03-07] MED LIST changes: -AMIO200T49 PO; +AMIO200T54 PO
[2025-03-07 14:13] LABS: BASO # 0.1 10^3/uL (0.0-0.2); BASO % 1.0 % (0.0-1.0); EOS # 0.1 10^3/uL (0.0-0.5); EOS % 1.8 % (0.0-3.0); LYMPH # 0.9 10^3/uL (1.5-5.0); LYMPH % 14.1 % (24.0-44.0); MONO # 0.7 10^3/uL (0.0-0.8); MONO % 11.9 % (2.0-8.0); NEUTROPHILS # 4.4 10^3/uL (1.5-8.5); NEUTROPHILS % 70.9 % (36.0-66.0); PLATELET COUNT, AUTOMATED 164 10^3/uL (150-450)
[2025-03-07 14:31] LABS: ALT/SGPT 23.0 U/L (7.0-40); AST/SGOT 31.0 U/L (<34); CALCIUM LEVEL 8.5 MG/DL (8.3-10.6); CARBON DIOXIDE LEVEL 28.0 MMOL/L (20-31); CHLORIDE LEVEL 99.0 MMOL/L (98-107); CREATININE FOR GFR 1.26 MG/DL (0.70-1.30); DIGOXIN LEVEL 0.8 NG/ML (0.8-2.0); GLOMERULAR FILTRATION RATE 56.9 (>35); POTASSIUM SERUM 4.2 MMOL/L (3.5-5.1); SODIUM LEVEL 139.0 MMOL/L (136-145)
== END ==
LOC: M LAB REF 13:26
PROVIDERS: ATTEND Nurse Practitioner Family
DX: I50.20 Unspecified systolic (congestive) heart failure (principal)